=== PATIENT | female | born 1930 | race Caucasian/White ===

== ENCOUNTER 2016-07-18 20:14 | Inpatient (IN) | payer MEDICARE, BC ==
--- NOTE | 2016-07-18 20:25 | EDM.PDOC ---
ED HISTORY OF PRESENT ILLNESS - General Chief Complaint: Cardiovascular Problem Stated Complaint: HIGH BLOOD PRESSURE Time Seen by Provider: 07/18/16 20:23 - History of Present Illness INITIAL COMMENTS - FREE TEXT/NARRATIVE: 86-year-old female presents to the emergency room with dizziness and increased blood pressure. Patient is having elevated blood pressure and has had some dizziness the dizziness is been an ongoing problem since a fall back in May. It seems to be worse with change of position. Patient had elevated blood pressure recently she was indurated physician who on Thursday stopped her metoprolol and started her on Inderal also increased the dose of her Cozaar from 25 mg a day to 50 mg a day she takes the Inderal in the evenings and Cozaar in the mornings. She was seen here about a week ago had a head CT with and without contrast that was negative for acute changes. The headache seems to be a vague headache doesn't seem to favor one side or the other. - Related Data Allergies/ADRs: Allergies Allergy/AdvReac Type Severity Reaction Status Date / Time No Known Allergies Allergy Verified 07/18/16 20:27 Home Meds: Home Meds Acetaminophen [Tylenol Extra Strength] 1,000 mg PO BID 03/09/15 [History] Aspirin 81 mg PO ACLUNCH 03/09/15 [History] B2/Vit A,C & E/Lut/Zeaxanth/Mn [Icaps] 1 tab PO BID 03/09/15 [History] LORazepam 0.5 mg PO BEDTIME 03/09/15 [History] Levothyroxine 125 mcg PO DAILY 03/09/15 [History] Losartan [Cozaar] 50 mg PO DAILY 03/09/15 [History] Pantoprazole [Protonix] 40 mg PO DAILY 03/09/15 [History] Calcium Polycarbophil [Fiber Tabs] 1 tab PO ACLUNCH 11/19/15 [History] Ondansetron [Zofran] 4 mg PO ASDIRECTED PRN 11/19/15 [History] Sertraline [Zoloft] 50 mg PO BEDTIME 11/19/15 [History] Sucralfate [Carafate] 1 gm PO ASDIRECTED PRN 11/19/15 [History] Vitamin B Complex 1 cap PO ACLUNCH 11/19/15 [History] traMADol [Ultram] 100 mg PO BID 11/19/15 [History] Propranolol [Inderal] 80 mg PO BEDTIME 07/18/16 [History] Donepezil [Aricept] 5 mg PO BEDTIME 07/19/16 [History] Past Medical History 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 History: Reports: Urinary incontinence 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 Complicated by acute pancreatitis Other Female Surgeries/Procedures: bladder sling Musculoskeletal Surgical History: Reports: Knee replacement Other Musculoskeletal Surgeries/Procedures:: RTK Social & Family History - Tobacco Use Smoking Status *Q: Never Smoker Second Hand Smoke Exposure: No - Recreational Drug Use Recreational Drug Use: No ED ROS GENERAL - Review of Systems Review Of Systems: Unable To Obtain Constitutional: Reports: no symptoms, weakness, fatigue. Denies: fever, chills HEENT: Reports: No symptoms, Other (she has some dizziness). Denies: Ear pain, Rhinitis, Sinus problem Respiratory: Reports: no symptoms Cardiovascular: Reports: Blood pressure problem. Denies: Chest pain, Dyspnea on exertion, Edema Endocrine: Reports: no symptoms GI/Abdominal: Reports: Nausea. Denies: Abdominal pain, Constipation, Diarrhea : Reports: no symptoms Musculoskeletal: Reports: no symptoms Skin: Reports: no symptoms Neurological: Reports: dizziness, headache, other (she has some underlying dementia) Psychiatric: Denies: Agitation, Anxiety ED EXAM, GENERAL - Physical Exam Exam: See Below Exam Limited By: No limitations General Appearance: alert, no apparent distress Ears: normal external exam, normal canal, hearing grossly normal, normal TMs, other (she uses hearing aids) Throat/Mouth: Normal inspection, Normal lips, Normal gums, Normal oropharynx, Normal voice, No airway compromise Head: atraumatic, normocephalic Neck: normal inspection, supple, non-tender, full range of motion Respiratory/Chest: no respiratory distress, lungs clear, normal breath sounds Cardiovascular: regular rate, rhythm, no edema, no murmur GI/Abdominal: normal bowel sounds, soft, non tender Back Exam: normal inspection. No: CVA tenderness (L), CVA tenderness (R) Extremities: normal inspection, no pedal edema Neurological: alert, no motor/sensory deficits EKG INTERPRETATION EKG Date: 07/18/16 Rhythm: NSR Rate (beats/min): 55 [place]: LAD-left axis deviation P-wave: present QRS: normal ST-T: normal QT: normal Course - Vital Signs Last Recorded V/S: Last Vital Signs Temp 36.7 C 07/19/16 20:19 Pulse 88 07/19/16 21:51 Resp 16 07/19/16 20:19 BP 121/53 L 07/19/16 21:51 Pulse Ox 96 07/19/16 21:51 - Orders/Labs/Meds Orders: Medication Orders Acetaminophen (Tylenol) 650 mg PO Q4H PRN PRN Reason: Headache Aspirin (Halfprin) 81 mg PO ACLUNCH [facility] Donepezil HCl (Aricept) 5 mg PO BEDTIME [facility] Last Admin: 07/19/16 21:50 Dose: 5 mg Doxazosin Mesylate (Cardura) 2 mg PO BEDTIME [facility] Last Admin: 07/19/16 22:00 Dose: Hydralazine HCl (Apresoline) 20 mg IVPUSH Q8H PRN PRN Reason: Hypertension Last Admin: 07/19/16 16:04 Dose: 20 mg Hydrochlorothiazide (Hydrochlorothiazide) 25 mg PO DAILY [facility] Last Admin: 07/19/16 11:25 Dose: 25 mg Ceftriaxone Sodium 1 gm/ (Sodium Chloride) 100 mls @ 200 mls/hr IV Q24H [facility] Last Admin: 07/19/16 14:07 Dose: 200 mls/hr Promethazine HCl 25 mg/ Sodium (Chloride) 51 mls @ 100 mls/hr IV Q6H PRN PRN Reason: Nausea/Vomiting Last Admin: 07/19/16 19:40 Dose: 100 mls/hr Lactated Ringer's (Ringers, Lactated) 1,000 mls @ 50 mls/hr IV ASDIRECTED [facility] Last Admin: 07/19/16 19:39 Dose: 50 mls/hr Levothyroxine Sodium (Levothyroxine) 125 mcg PO ACBREAKFAST [facility] Last Admin: 07/20/16 05:55 Dose: 125 mcg Lorazepam (Ativan) 0.5 mg PO BEDTIME [facility] Last Admin: 07/19/16 21:51 Dose: 0.5 mg Losartan Potassium (Cozaar) 50 mg PO BIDPC [facility] Last Admin: 07/19/16 19:41 Dose: 50 mg Ondansetron HCl (Zofran) 4 mg IVPUSH Q8H PRN PRN Reason: Nausea/Vomiting Pantoprazole Sodium (Protonix) 40 mg PO DAILY@0700 [facility] Last Admin: 07/20/16 06:13 Dose: Not Given Admin: 07/20/16 05:55 Dose: 40 mg Propranolol HCl (Inderal La) 80 mg PO BEDTIME [facility] Last Admin: 07/19/16 22:00 Dose: Sertraline HCl (Zoloft) 50 mg PO BEDTIME [facility] Sucralfate (Carafate) 1 gm PO QID PRN PRN Reason: Indigestion Last Admin: 07/19/16 11:25 Dose: 1 gm Tramadol HCl (Ultram) 100 mg PO BID [facility] Last Admin: 07/19/16 21:52 Dose: 100 mg Admin: 07/19/16 17:09 Dose: 100 mg Labs: Laboratory Tests 07/18/16 07/18/16 07/18/16 Range/Units 21:28 21:28 23:02 WBC 5.00 (3.98-10.04) K/mm3 RBC 4.40 (3.98-5.22) M/mm3 Hgb 14.4 (11.2-15.7) gm/L Hct 42.2 (34.1-44.9) % MCV 95.9 H (79.4-94.8) fl MCH 32.7 H (25.6-32.2) pg MCHC 34.1 (32.2-35.5) g/dl RDW Std Deviation 40.0 (36.4-46.3) fL Plt Count 226 (182-369) K/mm3 MPV 8.6 L (9.4-12.3) fl Neutrophils % (Manual) 35 L (40-60) % Band Neutrophils % 0 (0-10) % Lymphocytes % (Manual) 55 H (20-40) % Atypical Lymphs % 0 % Monocytes % (Manual) 7 (2-10) % Eosinophils % (Manual) 3 (0.7-5.8) % Basophils % (Manual) 0 L (0.1-1.2) Platelet Estimate Adequate Plt Morphology Comment See note RBC Morph Comment Normal Sodium 140 (136-145) mEq/L Potassium 3.9 (3.5-5.1) mEq/L Chloride 101 (98-107) mEq/L Carbon Dioxide 30 (21-32) mEq/L Anion Gap 12.9 (5-15) BUN 13 (7-18) mg/dL Creatinine 0.7 (0.55-1.02) mg/dL Est Cr Clr Drug Dosing 45.95 mL/min Estimated GFR (MDRD) > 60 (>60) mL/min BUN/Creatinine Ratio 18.6 H (14-18) Glucose 117 H (83-115) mg/dL Calcium 9.1 (8.5-10.1) mg/dL Total Bilirubin 0.3 (0.2-1.0) mg/dL AST 13 L (15-37) U/L ALT 18 (14-59) U/L Alkaline Phosphatase 40 L (46-116) U/L Total Protein 7.1 (6.4-8.2) g/dl Albumin 3.9 (3.4-5.0) g/dl Globulin 3.2 gm/dL Albumin/Globulin Ratio 1.2 (1-2) Urine Color Light yellow (Yellow) Urine Appearance Clear (Clear) Urine pH 7.0 (5.0-8.0) Ur Specific Squire 1.020 (1.005-1.030) Urine Protein Negative (Negative) Urine Glucose (UA) Negative (Negative) Urine Ketones Negative (Negative) Urine Occult Blood Negative (Negative) Urine Nitrite Negative (Negative) Urine Bilirubin Negative (Negative) Urine Urobilinogen 0.2 (0.2-1.0) Ur Leukocyte Esterase 1+ H (Negative) Urine RBC 0-5 (0-5) /hpf Urine WBC 5-10 H (0-5) /hpf Ur Epithelial Cells 0-5 (0-5) /hpf Urine Bacteria Rare (FEW) /hpf Urine Mucus Not seen (FEW) /hpf Meds: Medications Generic Name Dose Route Start Last Admin Trade Name Freq PRN Reason Stop Dose Admin Acetaminophen 650 mg 07/19/16 16:38 Tylenol PO Q4H PRN Headache Aspirin 81 mg 07/20/16 10:00 Halfprin PO ACLUNCH [facility] Donepezil HCl 5 mg 07/19/16 21:00 07/19/16 21:50 Aricept PO 5 mg BEDTIME [facility] Administration Doxazosin Mesylate 2 mg 07/19/16 21:00 07/19/16 22:00 Cardura PO Not Given BEDTIME [facility] Hydralazine HCl 20 mg 07/19/16 02:38 07/19/16 16:04 Apresoline IVPUSH 20 mg Q8H PRN Administration Hypertension Hydrochlorothiazide 25 mg 07/19/16 09:00 07/19/16 11:25 Hydrochlorothiazide PO 25 mg DAILY [facility] Administration Ceftriaxone Sodium 1 gm/ 100 mls @ 200 mls/hr 07/19/16 14:00 07/19/16 14:07 Sodium Chloride IV 200 mls/hr Q24H [facility] Administration Promethazine HCl 25 mg/ Sodium 51 mls @ 100 mls/hr 07/19/16 18:24 07/19/16 19 :40 Chloride IV 100 mls/hr Q6H PRN Administration Nausea/Vomiting Lactated Ringer's 1,000 mls @ 50 mls/hr 07/19/16 19:30 07/19/16 19:39 Ringers, Lactated IV 50 mls/hr ASDIRECTED [facility] Administration Levothyroxine Sodium 125 mcg 07/20/16 06:00 07/20/16 05:55 Levothyroxine PO 125 mcg ACBREAKFAST [facility] Administration Lorazepam 0.5 mg 07/19/16 21:00 07/19/16 21:51 Ativan PO 0.5 mg BEDTIME [facility] Administration Losartan Potassium 50 mg 07/19/16 18:00 07/19/16 19:41 Cozaar PO 50 mg BIDPC [facility] Administration Ondansetron HCl 4 mg 07/19/16 18:23 Zofran IVPUSH Q8H PRN Nausea/Vomiting Pantoprazole Sodium 40 mg 07/20/16 07:00 07/20/16 06:13 Protonix PO Not Given DAILY@0700 [facility] Propranolol HCl 80 mg 07/19/16 21:00 07/19/16 22:00 Inderal La PO Not Given BEDTIME [facility] Sertraline HCl 50 mg 07/20/16 21:00 Zoloft PO BEDTIME [facility] Sucralfate 1 gm 07/19/16 10:35 07/19/16 11:25 Carafate PO 1 gm QID PRN Administration Indigestion Tramadol HCl 100 mg 07/19/16 17:00 07/19/16 21:52 Ultram PO 100 mg BID [facility] Administration Discontinued Medications Generic Name Dose Route Start Last Admin Trade Name Freq PRN Reason Stop Dose Admin Hydralazine HCl 5 mg 07/18/16 20:58 07/18/16 21:10 Apresoline PO 07/18/16 20:59 5 mg ONETIME ONE Administration Hydralazine HCl 5 mg 07/18/16 22:07 07/18/16 22:16 Apresoline IVPUSH 07/18/16 22:08 5 mg ONETIME ONE Administration Lactated Ringer's 1,000 mls @ 75 mls/hr 07/18/16 21:30 07/18/16 21:43 Ringers, Lactated IV 75 mls/hr ASDIRECTED [facility] Administration Meclizine HCl 12.5 mg 07/18/16 20:58 07/18/16 21:10 Antivert PO 07/18/16 20:59 12.5 mg ONETIME ONE Administration Meclizine HCl 12.5 mg 07/18/16 23:48 07/18/16 23:55 Antivert PO 07/18/16 23:49 12.5 mg ONETIME ONE Administration Meclizine HCl 12.5 mg 07/18/16 23:55 07/19/16 00:01 Antivert PO 07/18/16 23:56 Not Given ONETIME ONE Ondansetron HCl 4 mg 07/18/16 21:17 07/18/16 21:42 Zofran IVPUSH 07/18/16 21:18 4 mg ONETIME ONE Administration Ondansetron HCl 4 mg 07/19/16 00:47 07/19/16 03:54 Zofran IVPUSH 07/19/16 00:48 Not Given ONETIME ONE Ondansetron HCl Confirm 07/19/16 18:19 07/19/16 18:22 Zofran Administered 07/19/16 18:20 4 mg Dose Administration 4 mg .ROUTE .STK-MED ONE Terazosin HCl 2 mg 07/19/16 02:40 07/19/16 03:52 Hytrin PO 07/19/16 02:41 Not Given BEDTIME ONE - Re-Assessments/Exams Free Text/Narrative Re-Assessment/Exam: 07/18/16 21:42 labs and x-rays ordered she recently had a CT she hasn't had any recent falls we 'll not recheck it just yet. Gave her 5 mg of hydralazine as her blood pressure was running 170-200 systolic and 12.5 mg of meclizine unfortunately she vomited these up we don't know how much stayed down I will give her 4 mg of Zofran and watch her at this point. 07/18/16 23:53 patient is doing better at this time she still having some intermittent dizziness but she is ambulatory with some dizziness generally feels better she was given 5 mg of hydralazine IV and her pressures have stabilized. In the 160s to 170s. Her labs look pretty good except she may have an early developing UTI cultures been set up on this. We will try and give her some meclizine. Departure - Departure Time of Disposition: 01:14 Disposition: Admitted As Inpatient 64 Clinical Impression: Hypertensive urgency
[2016-07-18] MEDS ORDERED: hydrALAZINE 10 MG Tab PO ONE (20:58)
[2016-07-18] MEDS ORDERED: Meclizine 12.5 MG Tab PO ONE ×3 (20:58→23:55)
[2016-07-18] MEDS ORDERED: Ondansetron 4 MG/2 ML SDV IVPUSH ONE (21:17)
[2016-07-18] MEDS ORDERED: Lactated Ringers 1,000 ML IV SCH (21:30)
[2016-07-18] MEDS ORDERED: hydrALAZINE 20 MG/ML SDV IVPUSH ONE (22:07)
[2016-07-19] MEDS ORDERED: Ondansetron 4 MG/2 ML SDV IVPUSH ONE (00:47)
[2016-07-19] MEDS ORDERED: hydrALAZINE 20 MG/ML SDV IVPUSH PRN (02:38)
[2016-07-19] MEDS ORDERED: Sucralfate 1 GM Tab PO PRN (10:35)
[2016-07-19] MEDS: Hydrochlorothiazide 25 MG Tab PO SCH (11:25)
--- NOTE | 2016-07-19 13:35 | PCM.HP ---
H&P History of Present Illness - General Date of Service: 07/19/16 Source of Information: Patient, Family, Provider History Limitations: Reports: No limitations - History of Present Illness Initial Comments - Free Text/Narative: 86 year old female with complaint of dizziness has also had profoundly labile blood pressure. On presentation, the SBP was greater than 190. The patient could not be controlled on Apresoline. However a very small dose of 10 mg IV was given. She has had chronic headaches, as well as a change of vision and an unstable gait. Recent medication changes have been made including starting Inderal for headaches as well as increasing Cozaar 25-->50 mg daily. AMS was noted on the ED evaluation, a UTI has been documented. A posterior circulation evaluation will be pursued to shed light on the gait instability and reportedly vertigo; central vertigo has not been excluded. Onset of Symptoms: Reports: unknown/unsure Duration of Symptoms: Reports: Week(s):, Getting worse, Recurring Location: Reports: head Quality: Reports: Same as previous episode Improves with: Reports: None Worsens with: Reports: None Associated Symptoms: Reports: confusion, headaches, weakness Headache Pain Score (Numeric/FACES): 7 - Related Data Allergies/Adverse Reactions: Allergies Allergy/AdvReac Type Severity Reaction Status Date / Time No Known Allergies Allergy Verified 07/18/16 20:27 Home Medications: Home Meds Acetaminophen [Tylenol Extra Strength] 1,000 mg PO BID 03/09/15 [History] Aspirin 81 mg PO ACLUNCH 03/09/15 [History] B2/Vit A,C & E/Lut/Zeaxanth/Mn [Icaps] 1 tab PO BID 03/09/15 [History] LORazepam 0.5 mg PO BEDTIME 03/09/15 [History] Levothyroxine 125 mcg PO DAILY 03/09/15 [History] Losartan [Cozaar] 50 mg PO DAILY 03/09/15 [History] Pantoprazole [Protonix] 40 mg PO DAILY 03/09/15 [History] Calcium Polycarbophil [Fiber Tabs] 1 tab PO ACLUNCH 11/19/15 [History] Ondansetron [Zofran] 4 mg PO ASDIRECTED PRN 11/19/15 [History] Sertraline [Zoloft] 50 mg PO BEDTIME 11/19/15 [History] Sucralfate [Carafate] 1 gm PO ASDIRECTED PRN 11/19/15 [History] Vitamin B Complex 1 cap PO ACLUNCH 11/19/15 [History] traMADol [Ultram] 100 mg PO BID 11/19/15 [History] Propranolol [Inderal] 80 mg PO BEDTIME 07/18/16 [History] Donepezil [Aricept] 5 mg PO BEDTIME 07/19/16 [History] Past Medical History HEENT History: Reports: Hard of hearing, Other (see below) Other HEENT History: daughter states she will bring the hearing aids in in the morning. pt wears glasses and has dentures. 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: Musculoskeletal History: Reports: Other (see below) Other Musculoskeletal History: fractures vertebrae, hx of right knee replacement has pain in it still so wears a brace to help with the pain, left knee is bone on bone so also hurts with ambulation Neurological History: Reports: Headaches, chronic Endocrine/Metabolic History: Reports: Hypothyroidism Dermatologic History: Reports: None - Infectious Disease History Infectious Disease History: Reports: Chicken pox - Past Surgical History Other HEENT Surgeries/Procedures: nose surgery Cardiovascular Surgical History: Reports: None Other GI Surgeries/Procedures: 82% stomach removal 40 years ago d/t perfurated ulcer. Complicated by acute pancreatitis Female Surgical History: Reports: Other (see below) Other Female Surgeries/Procedures: bladder sling Endocrine Surgical History: Reports: None Neurological Surgical History: Reports: None Musculoskeletal Surgical History: Reports: Knee replacement Other Musculoskeletal Surgeries/Procedures:: RTK Dermatological Surgical History: Reports: None Social & Family History - Family History Family Medical History: Noncontributory - Tobacco Use Smoking Status *Q: Never Smoker Second Hand Smoke Exposure: No - Caffeine Use Caffeine Use: Reports: Other Other Caffeine Use: occassional coffee - Recreational Drug Use Recreational Drug Use: No H&P Review of Systems - Review of Systems: Review Of Systems: See Below General: Reports: malaise, weakness, decreased appetite HEENT: Reports: headaches Pulmonary: Reports: no symptoms Cardiovascular: Reports: no symptoms Gastrointestinal: Reports: Abdominal pain Genitourinary: Reports: no symptoms Musculoskeletal: Reports: no symptoms Skin: Reports: no symptoms Psychiatric: Reports: confusion Neurological: Reports: dizziness Hematologic/Lymphatic: Reports: no symptoms Immunologic: Reports: no symptoms Exam - Exam Exam: See Below - Vital Signs Vital Signs: Last Vital Signs Temp 36.9 C 07/19/16 12:45 Pulse 65 07/19/16 12:45 Resp 20 07/19/16 12:45 BP 127/78 07/19/16 11:25 Pulse Ox 92 L 07/19/16 12:45 Weight: 65.635 kg - Exam Quality Assessment: supplemental oxygen, DVT prophylaxis General: alert, oriented, cooperative HEENT: EACs clear, EOMI, Nares patent, Normal nasal septum, Pupils equal, Pupils reactive Neck: supple, trachea midline Lungs: Normal respiratory effort Cardiovascular: regular rate, regular rhythm Abdomen: normal bowel sounds, soft (Female) Exam: Deferred Rectal (Female) Exam: Deferred Back Exam: normal inspection Extremities: normal pulses Skin: warm Neurological: cranial nerves intact Neuro Extensive - Mental Status: alert, normal mood/affect, normal cognition, memory intact Neuro Extensive - Motor, Sensory, Reflexes: CN II-XII intact, normal gait Psychiatric: alert, normal affect, normal mood - Patient Data Result Diagrams: 07/20/16 05:55 07/20/16 05:55 *Q Meaningful Use (ADM) - VTE *Q VTE Criteria *Q: - Stroke *Q Stroke Criteria *Q: - AMI *Q AMI Criteria *Q: - Problem List (1) High blood pressure SNOMED Code(s): 88764314 ICD Code: I10 - ESSENTIAL (PRIMARY) HYPERTENSION Status: Acute Current Visit: No (2) Syncope SNOMED Code(s): 411022811 ICD Code: R55 - SYNCOPE AND COLLAPSE Status: Acute Current Visit: No Qualifiers: Qualified Code(s): R55 - Syncope and collapse Problem List Initiated/Reviewed/Updated: No Orders Last 24hrs: Active Orders 24 hr Category Date Time Status Activity as Tolerated [RC] .Routine Care 07/19/16 03:45 Active Bedrest Bathroom Privileges [RC] ASDIRECTED Care 07/19/16 10:19 Active Neuro Check [RC] BID Care 07/19/16 12:19 Active Vital Signs [RC] PER UNIT ROUTINE Care 07/19/16 10:19 Active Consult to Occupational Therapy [OT Evaluation and Cons 07/19/16 10:44 Active Treatment] [CONS] Routine PT Evaluation and Treatment [CONS] Routine Cons 07/19/16 10:44 Active Clear Liquid Diet [DIET] Diet 07/19/16 Breakfast Active Brain w Cont [MR] Routine Exams 07/21/16 09:00 Ordered MRA Neck Without Contrast [Ang Neck wo Cont] [MR] Exams 07/21/16 09:00 Ordered Routine RENA W/RFX TESTING [REF] Routine Lab 07/20/16 05:00 Ordered BASIC METABOLIC PANEL,BMP [CHEM] DAILY Lab 07/20/16 05:00 Ordered BASIC METABOLIC PANEL,BMP [CHEM] DAILY Lab 07/21/16 05:00 Ordered BASIC METABOLIC PANEL,BMP [CHEM] DAILY Lab 07/22/16 05:00 Ordered CBC WITH AUTO DIFF [HEME] DAILY Lab 07/20/16 05:00 Ordered CBC WITH AUTO DIFF [HEME] DAILY Lab 07/21/16 05:00 Ordered CBC WITH AUTO DIFF [HEME] DAILY Lab 07/22/16 05:00 Ordered CRP [C-REACTIVE PROTEIN] [CHEM] Routine Lab 07/20/16 05:00 Ordered FOLIC ACID [CHEM] Routine Lab 07/20/16 05:00 Ordered INFLUENZA A+B AG SCREEN [RM] Routine Lab 07/19/16 13:24 Uncollected LIPID PANEL [CHEM] Routine Lab 07/20/16 05:00 Ordered MYCOPLASMA PNEUMONIAE IGM AB [CHEM] Routine Lab 07/20/16 05:00 Ordered SEDIMENTATION RATE AUTO [HEME] Routine Lab 07/20/16 05:00 Ordered TSH [CHEM] Routine Lab 07/20/16 05:00 Ordered VITAMIN B12 [CHEM] Routine Lab 07/20/16 05:00 Ordered Aspirin [Halfprin] Med 07/20/16 10:00 Active 81 mg PO ACLUNCH Donepezil [Aricept] Med 07/19/16 21:00 Active 5 mg PO BEDTIME Hydrochlorothiazide Med 07/19/16 09:00 Active 25 mg PO DAILY LORazepam [Ativan] Med 07/19/16 21:00 Active 0.5 mg PO BEDTIME Levothyroxine Med 07/20/16 06:00 Active 125 mcg PO ACBREAKFAST Losartan [Cozaar] Med 07/19/16 18:00 Active 50 mg PO BIDPC Pantoprazole [Protonix] Med 07/20/16 07:00 Active 40 mg PO DAILY@0700 Propranolol [Inderal LA] Med 07/19/16 21:00 Active 80 mg PO BEDTIME Sertraline [Zoloft] Med 07/20/16 21:00 Active 50 mg PO BEDTIME Sucralfate [Carafate] Med 07/19/16 10:35 Active 1 gm PO QID PRN cefTRIAXone [Rocephin] 1 gm Med 07/19/16 13:30 Ordered Sodium Chloride 0.9% [Normal Saline] 100 ml IV Q24H hydrALAZINE [Apresoline] Med 07/19/16 02:38 Active 20 mg IVPUSH Q8H PRN Aspiration Precautions [OM.PC] Routine Oth 07/19/16 12:18 Ordered Code Status [Resuscitation Status] Routine Resus Stat 07/19/16 03:46 Ordered Medication Orders Aspirin (Halfprin) 81 mg PO ACLUNCH [facility] Donepezil HCl (Aricept) 5 mg PO BEDTIME [facility] Hydralazine HCl (Apresoline) 20 mg IVPUSH Q8H PRN PRN Reason: Hypertension Hydrochlorothiazide (Hydrochlorothiazide) 25 mg PO DAILY [facility] Last Admin: 07/19/16 11:25 Dose: 25 mg Lactated Ringer's (Ringers, Lactated) 1,000 mls @ 75 mls/hr IV ASDIRECTED [facility] Last Admin: 07/18/16 21:43 Dose: 75 mls/hr Ceftriaxone Sodium 1 gm/ (Sodium Chloride) 100 mls @ 200 mls/hr IV Q24H [facility] Levothyroxine Sodium (Levothyroxine) 125 mcg PO ACBREAKFAST [facility] Lorazepam (Ativan) 0.5 mg PO BEDTIME [facility] Losartan Potassium (Cozaar) 50 mg PO BIDPC [facility] Pantoprazole Sodium (Protonix) 40 mg PO DAILY@0700 [facility] Propranolol HCl (Inderal La) 80 mg PO BEDTIME [facility] Sertraline HCl (Zoloft) 50 mg PO BEDTIME [facility] Sucralfate (Carafate) 1 gm PO QID PRN PRN Reason: Indigestion Last Admin: 07/19/16 11:25 Dose: 1 gm Assessment/Plan Comment:: Impression: Mild AMS with recent exacerbation of dizziness Presumptive treatment of vertigo as an outpatient. UTI Migraine headaches with recent Inderal Systolic hypertension, uncontrolled Chronic Hypothyroid Plan: Rocephin Hydration, stop at 1800 hour Home meds Hold Antivert Consult PT/OT/SW CVA posterior circ work up. CVA protocol with lab assessment May require SNF at [place] for rehab.
[2016-07-19] MEDS: cefTRIAXone 1 GM in Sodium Chloride 0.9% 100 ML IV SCH (14:07)
[2016-07-19] MEDS ORDERED: Acetaminophen 325 MG Tab PO PRN (16:38)
[2016-07-19] MEDS: traMADol 50 MG Tab PO SCH ×2 (17:09→21:52)
[2016-07-19] MEDS ORDERED: Ondansetron 4 MG/2 ML SDV ONE (18:19)
[2016-07-19] MEDS ORDERED: Ondansetron 4 MG/2 ML SDV IVPUSH PRN (18:23)
[2016-07-19] MEDS ORDERED: Promethazine 25 MG in Sodium Chloride 0.9% 50 ML IV PRN (18:24)
[2016-07-19] MEDS: Lactated Ringers 1,000 ML IV SCH (19:39)
[2016-07-19] MEDS: Losartan 25 MG Tab PO SCH (19:41)
[2016-07-19] MEDS: Donepezil 10 MG Tab PO SCH (21:50)
[2016-07-19] MEDS: Propranolol 80 MG Cap.ER PO SCH ×2 (21:50→22:00)
[2016-07-19] MEDS: Doxazosin 2 MG Tab PO SCH ×2 (21:50→22:00)
[2016-07-19] MEDS: LORazepam 0.5 MG Tab PO SCH (21:51)
[2016-07-20] MEDS: Pantoprazole 40 MG Tab.CR PO SCH ×2 (05:55→06:13)
[2016-07-20] MEDS: Levothyroxine 125 MCG Tab PO SCH (05:55)
[2016-07-20] MEDS ORDERED: Magnesium Hydroxide 400 MG/5 ML Susp 30 ML Cup PO PRN (07:50)
[2016-07-20] MEDS: traMADol 50 MG Tab PO SCH ×2 (09:05→20:59)
[2016-07-20] MEDS: Aspirin 81 MG Tab.EC PO SCH (09:05)
[2016-07-20] MEDS: Losartan 25 MG Tab PO SCH ×2 (09:05→17:49)
[2016-07-20] MEDS: Hydrochlorothiazide 25 MG Tab PO SCH (09:05)
[2016-07-20] MEDS: cefTRIAXone 1 GM in Sodium Chloride 0.9% 100 ML IV SCH (13:42)
[2016-07-20] MEDS: Lactated Ringers 1,000 ML IV SCH (16:26)
--- NOTE | 2016-07-20 19:45 | PCM.PN ---
- General Info Date of Service: 07/20/16 Functional Status: Reports: tolerating diet, ambulating, urinating - Review of Systems General: Reports: weakness HEENT: Reports: no symptoms Pulmonary: Reports: no symptoms Cardiovascular: Reports: no symptoms Gastrointestinal: Reports: No symptoms Genitourinary: Reports: no symptoms Musculoskeletal: Reports: no symptoms Skin: Reports: no symptoms Neurological: Reports: no symptoms Psychiatric: Reports: no symptoms - Patient Data Vitals - most recent: Last Vital Signs Temp 37.3 C 07/20/16 08:45 Pulse 85 07/20/16 08:45 Resp 16 07/20/16 08:45 BP 137/71 07/20/16 17:49 Pulse Ox 94 L 07/20/16 08:45 Weight - most recent: 65.635 kg I&O - last 24 hours: Intake & Output 07/20/16 07/20/16 07/20/16 06:59 14:59 22:59 Intake Total 291 15 4900 Output Total 650 500 Balance 153 60 600 Lab Results last 24 hrs: Laboratory Results - last 24 hr 07/20/16 07/20/16 07/20/16 Range/Units 05:55 05:55 05:55 WBC 7.60 (3.98-10.04) K/mm3 RBC 4.65 (3.98-5.22) M/mm3 Hgb 15.1 (11.2-15.7) gm/L Hct 45.0 H (34.1-44.9) % MCV 96.8 H (79.4-94.8) fl MCH 32.5 H (25.6-32.2) pg MCHC 33.6 (32.2-35.5) g/dl RDW Std Deviation 41.8 (36.4-46.3) fL Plt Count 276 (182-369) K/mm3 MPV 9.6 (9.4-12.3) fl Neut % (Auto) 49.5 (34.0-71.1) % Lymph % (Auto) 39.5 (19.3-51.7) % [place] % (Auto) 10.3 (4.7-12.5) % Eos % (Auto) 0.4 L (0.7-5.8) Baso % (Auto) 0.3 (0.1-1.2) % Neut # 3.77 (1.56-6.13) K/mm3 Lymph # 3.00 (1.18-3.74) K/mm3 [place] # 0.78 H (0.24-0.36) K/mm3 Eos # 0.03 L (0.04-0.36) K/mm3 Baso # 0.02 (0.01-0.08) K/mm3 ESR 11 (0-20) mm/hr Sodium 135 L (136-145) mEq/L Potassium 3.0 L (3.5-5.1) mEq/L Chloride 96 L (98-107) mEq/L Carbon Dioxide 31 (21-32) mEq/L Anion Gap 11.0 (5-15) BUN 12 (7-18) mg/dL Creatinine 0.9 (0.55-1.02) mg/dL Est Cr Clr Drug Dosing 35.74 mL/min Estimated GFR (MDRD) 59 (>60) mL/min BUN/Creatinine Ratio 13.3 L (14-18) Glucose 101 (83-115) mg/dL Calcium 8.9 (8.5-10.1) mg/dL C-Reactive Protein < 0.2 (<1.0) mg/dL Triglycerides 140 (<150) mg/dL Cholesterol 217 H (<200) mg/dL LDL Cholesterol Direct 140 H* (<100) mg/dL HDL Cholesterol 60.0 H (40-59) mg/dL Vitamin B12 (193-986) pg/ml Folate (8.6-58.9) ng/mL TSH 3rd Generation 1.716 (0.358-3.74) uIU/mL Mycoplasma pneumon IgM Negative (NEGATIVE) 07/20/16 Range/Units 05:55 WBC (3.98-10.04) K/mm3 RBC (3.98-5.22) M/mm3 Hgb (11.2-15.7) gm/L Hct (34.1-44.9) % MCV (79.4-94.8) fl MCH (25.6-32.2) pg MCHC (32.2-35.5) g/dl RDW Std Deviation (36.4-46.3) fL Plt Count (182-369) K/mm3 MPV (9.4-12.3) fl Neut % (Auto) (34.0-71.1) % Lymph % (Auto) (19.3-51.7) % [place] % (Auto) (4.7-12.5) % Eos % (Auto) (0.7-5.8) Baso % (Auto) (0.1-1.2) % Neut # (1.56-6.13) K/mm3 Lymph # (1.18-3.74) K/mm3 [place] # (0.24-0.36) K/mm3 Eos # (0.04-0.36) K/mm3 Baso # (0.01-0.08) K/mm3 ESR (0-20) mm/hr Sodium (136-145) mEq/L Potassium (3.5-5.1) mEq/L Chloride (98-107) mEq/L Carbon Dioxide (21-32) mEq/L Anion Gap (5-15) BUN (7-18) mg/dL Creatinine (0.55-1.02) mg/dL Est Cr Clr Drug Dosing mL/min Estimated GFR (MDRD) (>60) mL/min BUN/Creatinine Ratio (14-18) Glucose (83-115) mg/dL Calcium (8.5-10.1) mg/dL C-Reactive Protein (<1.0) mg/dL Triglycerides (<150) mg/dL Cholesterol (<200) mg/dL LDL Cholesterol Direct (<100) mg/dL HDL Cholesterol (40-59) mg/dL Vitamin B12 557 (193-986) pg/ml Folate 43.4 (8.6-58.9) ng/mL TSH 3rd Generation (0.358-3.74) uIU/mL Mycoplasma pneumon IgM (NEGATIVE) Mark Results last 24 hrs: Microbiology 07/19/16 15:03 Influenza Type A Antigen Screen - Final Nasopharyngeal Swab - Nare, Right NEGATIVE INFLUENZA A VIRUS AG Influenza Type B Antigen Screen - Final NEGATIVE INFLUENZA B VIRUS AG Med Orders - Current: Current Medications Acetaminophen (Tylenol) 650 mg PO Q4H PRN PRN Reason: Headache Aspirin (Halfprin) 81 mg PO ACLUNCH [facility] Last Admin: 07/20/16 09:05 Dose: 81 mg Donepezil HCl (Aricept) 5 mg PO BEDTIME [facility] Last Admin: 07/19/16 21:50 Dose: 5 mg Doxazosin Mesylate (Cardura) 2 mg PO BEDTIME [facility] Last Admin: 07/19/16 22:00 Dose: Not Given Enoxaparin Sodium (Lovenox) 40 mg SUBCUT DAILY [facility] Hydralazine HCl (Apresoline) 20 mg IVPUSH Q8H PRN PRN Reason: Hypertension Last Admin: 07/19/16 16:04 Dose: 20 mg Hydrochlorothiazide (Hydrochlorothiazide) 25 mg PO DAILY [facility] Last Admin: 07/20/16 09:05 Dose: 25 mg Ceftriaxone Sodium 1 gm/ (Sodium Chloride) 100 mls @ 200 mls/hr IV Q24H [facility] Last Admin: 07/20/16 13:42 Dose: 200 mls/hr Promethazine HCl 25 mg/ Sodium (Chloride) 51 mls @ 100 mls/hr IV Q6H PRN PRN Reason: Nausea/Vomiting Last Admin: 07/19/16 19:40 Dose: 100 mls/hr Lactated Ringer's (Ringers, Lactated) 1,000 mls @ 50 mls/hr IV ASDIRECTED [facility] Last Admin: 07/20/16 16:26 Dose: 50 mls/hr Levothyroxine Sodium (Levothyroxine) 125 mcg PO ACBREAKFAST [facility] Last Admin: 07/20/16 05:55 Dose: 125 mcg Lorazepam (Ativan) 0.5 mg PO BEDTIME [facility] Last Admin: 07/19/16 21:51 Dose: 0.5 mg Losartan Potassium (Cozaar) 50 mg PO BIDPC [facility] Last Admin: 07/20/16 17:49 Dose: 50 mg Magnesium Hydroxide (Milk Of Magnesia) 30 ml PO DAILY PRN PRN Reason: Constipation Last Admin: 07/20/16 09:05 Dose: 30 ml Ondansetron HCl (Zofran) 4 mg IVPUSH Q8H PRN PRN Reason: Nausea/Vomiting Pantoprazole Sodium (Protonix) 40 mg PO DAILY@0700 [facility] Last Admin: 07/20/16 06:13 Dose: Not Given Potassium Chloride (Potassium Chloride Solution) 40 meq PO BID [facility] Stop: 07/22/16 09:01 Propranolol HCl (Inderal La) 80 mg PO BEDTIME [facility] Last Admin: 07/19/16 22:00 Dose: Not Given Sertraline HCl (Zoloft) 50 mg PO BEDTIME [facility] Sucralfate (Carafate) 1 gm PO QID PRN PRN Reason: Indigestion Last Admin: 07/19/16 11:25 Dose: 1 gm Tramadol HCl (Ultram) 100 mg PO BID [facility] Last Admin: 07/20/16 09:05 Dose: 100 mg Discontinued Medications Hydralazine HCl (Apresoline) 5 mg PO ONETIME ONE Stop: 07/18/16 20:59 Last Admin: 07/18/16 21:10 Dose: 5 mg Hydralazine HCl (Apresoline) 5 mg IVPUSH ONETIME ONE Stop: 07/18/16 22:08 Last Admin: 07/18/16 22:16 Dose: 5 mg Lactated Ringer's (Ringers, Lactated) 1,000 mls @ 75 mls/hr IV ASDIRECTED [facility] Last Admin: 07/18/16 21:43 Dose: 75 mls/hr Meclizine HCl (Antivert) 12.5 mg PO ONETIME ONE Stop: 07/18/16 20:59 Last Admin: 07/18/16 21:10 Dose: 12.5 mg Meclizine HCl (Antivert) 12.5 mg PO ONETIME ONE Stop: 07/18/16 23:49 Last Admin: 07/18/16 23:55 Dose: 12.5 mg Meclizine HCl (Antivert) 12.5 mg PO ONETIME ONE Stop: 07/18/16 23:56 Last Admin: 07/19/16 00:01 Dose: Not Given Ondansetron HCl (Zofran) 4 mg IVPUSH ONETIME ONE Stop: 07/18/16 21:18 Last Admin: 07/18/16 21:42 Dose: 4 mg Ondansetron HCl (Zofran) 4 mg IVPUSH ONETIME ONE Stop: 07/19/16 00:48 Last Admin: 07/19/16 03:54 Dose: Not Given Ondansetron HCl (Zofran) Confirm Administered Dose 4 mg .ROUTE .STK-MED ONE Stop: 07/19/16 18:20 Last Admin: 07/19/16 18:22 Dose: 4 mg Terazosin HCl (Hytrin) 2 mg PO BEDTIME ONE Stop: 07/19/16 02:41 Last Admin: 07/19/16 03:52 Dose: Not Given - Exam Quality Assessment: DVT prophylaxis General: alert, oriented, cooperative, no acute distress HEENT: Pupils equal, Pupils reactive, EOMI Neck: supple, trachea midline, no JVD Lungs: Normal respiratory effort Cardiovascular: regular rate, regular rhythm Abdomen: bowel sounds present, soft, no tenderness, no distension (Female) Exam: Deferred Back Exam: normal inspection, full range of motion Extremities: normal pulses Skin: warm Neurological: no new focal deficit, normal speech Psy/Mental Status: alert, normal affect, normal mood - Problem List & Annotations (1) High blood pressure SNOMED Code(s): 11048056 Code(s): I10 - ESSENTIAL (PRIMARY) HYPERTENSION Status: Acute (2) Syncope SNOMED Code(s): 770938299 Code(s): R55 - SYNCOPE AND COLLAPSE Status: Acute Qualifiers: Qualified Code(s): R55 - Syncope and collapse - Problem List Review Problem List Initiated/Reviewed/Updated: Yes - My Orders Last 24 Hours: My Active Orders 07/19/16 19:30 Lactated Ringers [Ringers, Lactated] 1,000 ml IV ASDIRECTED 07/19/16 21:00 Donepezil [Aricept] 5 mg PO BEDTIME Doxazosin [Cardura] 2 mg PO BEDTIME LORazepam [Ativan] 0.5 mg PO BEDTIME Propranolol [Inderal LA] 80 mg PO BEDTIME 07/20/16 05:55 RENA W/RFX TESTING [REF] Routine 07/20/16 06:00 Levothyroxine 125 mcg PO ACBREAKFAST 07/20/16 07:00 Pantoprazole [Protonix] 40 mg PO DAILY@0700 07/20/16 07:50 Magnesium Hydroxide [Milk of Magnesia] 30 ml PO DAILY PRN 07/20/16 10:00 Aspirin [Halfprin] 81 mg PO ACLUNCH 07/20/16 21:00 Potassium Chloride [Potassium Chloride Solution] 40 meq PO BID Sertraline [Zoloft] 50 mg PO BEDTIME 07/20/16 Breakfast Regular Diet [DIET] 07/21/16 05:00 BASIC METABOLIC PANEL,BMP [CHEM] DAILY CBC WITH AUTO DIFF [HEME] DAILY 07/21/16 09:00 Brain w Cont [MR] Routine MRA Neck Without Contrast [Ang Neck wo Cont] [MR] Routine Enoxaparin [Lovenox] 40 mg SUBCUT DAILY 07/21/16 11:00 Consult to Buggy Man [CONS] Routine 07/21/16 13:00 Echo Comp wo Cont [US] Routine 07/22/16 05:00 BASIC METABOLIC PANEL,BMP [CHEM] DAILY CBC WITH AUTO DIFF [HEME] DAILY - Plan Plan:: Impression: Mild AMS with recent exacerbation of dizziness Presumptive treatment of vertigo as an outpatient. UTI Migraine headaches with recent Inderal Systolic hypertension, uncontrolled Chronic Hypothyroid Plan: Continue alpha christiano, Cardura 2 mg daily. Follow BP, labile; may need drug holiday. Rocephin Hydration, stop at 1800 hour Home meds Hold Antivert Consult PT/OT/SW CVA posterior circ work up. CVA protocol with lab assessment May require SNF at [place] for rehab.
[2016-07-20] MEDS: Sertraline 50 MG Tab PO SCH (20:58)
[2016-07-20] MEDS: Donepezil 10 MG Tab PO SCH (20:58)
[2016-07-20] MEDS: Doxazosin 2 MG Tab PO SCH (20:59)
[2016-07-20] MEDS: LORazepam 0.5 MG Tab PO SCH (20:59)
[2016-07-20] MEDS: Potassium Chloride 10% 20 MEQ/15 ML Soln 15 ML UD Cup PO SCH (21:00)
[2016-07-20] MEDS: Propranolol 80 MG Cap.ER PO SCH (21:00)
[2016-07-21] MEDS: Levothyroxine 125 MCG Tab PO SCH (06:26)
[2016-07-21] MEDS: Pantoprazole 40 MG Tab.CR PO SCH (06:26)
--- NOTE | 2016-07-21 08:01 | CT ---
Head CT Technique: Multiple axial sections through the brain were obtained. Intravenous contrast was not utilized. Comparison: Previous head CT study of 07/10/16. Findings: Ventricles along with basal cisterns and sulci over the convexities are mildly prominent for the patient's age. Diminished density noted within the periventricular and subcortical white matter as well as within the basal ganglia on both sides. 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 No other abnormal parenchymal densities are seen. No evidence of intracranial hemorrhage. No midline shift or mass effect is seen. Slight vascular calcification seen within the carotid siphon. No discrete calvarial abnormality is seen. Visualized paranasal sinuses are clear. Mastoid and middle ear cavities are clear. Impression: 1. Senescent change as described above. 2. No acute intracranial abnormality is identified. No significant change seen from prior head CT exam. Diagnostic code #2 I agree with preliminary report issued by [employer] (preliminary report dictated on 07/18/16, 11:59 PM Central Time)
[2016-07-21] MEDS ORDERED: Gadobenate Dimeglumine 529 MG/ML 20 ML SDV IVPUSH ONE ×2 (08:11→12:56)
[2016-07-21] MEDS ORDERED: Sodium Chloride 0.9% 10 ML Syringe FLUSH PRN ×2 (08:11→12:56)
[2016-07-21] MEDS: traMADol 50 MG Tab PO SCH ×2 (09:47→21:01)
[2016-07-21] MEDS: Losartan 25 MG Tab PO SCH ×2 (09:47→17:39)
[2016-07-21] MEDS: Enoxaparin 40 MG/0.4 ML Syringe SUBCUT SCH (09:48)
[2016-07-21] MEDS: Potassium Chloride 10% 20 MEQ/15 ML Soln 15 ML UD Cup PO SCH ×2 (09:48→21:03)
[2016-07-21] MEDS: Aspirin 81 MG Tab.EC PO SCH (09:48)
[2016-07-21] MEDS: Hydrochlorothiazide 25 MG Tab PO SCH (09:48)
--- NOTE | 2016-07-21 09:59 | MR ---
MRI brain (with and without contrast) Technique: T1 sagittal; T2, T2 FLAIR, diffusion and T1 axial; T1 FLAIR coronal; post-gadolinium T1 axial and post-gadolinium T1 and FLAIR coronal images of the brain were obtained. Comparison: Previous head CT exam of 07/18/16. Findings: Ventricles along with basal cisterns and sulci over the convexities are mildly prominent. Diffuse increased signal is seen within the susi, basal ganglia, subcortical white matter and periventricular white matter compatible with small vessel ischemic demyelination change. No abnormal areas of diffusion are seen to indicate an acute infarct. No midline shift or mass effect is seen. Normal signal void is seen within the major cerebral arteries within the skull base. No abnormal areas of enhancement are seen. Impression: 1. Senescent change as described above. No acute diffusion abnormalities are seen. Diagnostic code #2
--- NOTE | 2016-07-21 14:42 | MR ---
MRA angiogram of neck Technique: MR angiogram study was performed after intravenous gadolinium administration. Multiple MIP images were obtained. Findings: Significant venous contamination is seen which limits details. Interpretation primarily based on the [id number] images. Carotid bulb shows no significant stenosis. Internal carotid artery and visualized common carotid arteries on both sides show no significant stenosis. Majority of the vertebral arteries that are seen appear without stenosis. Impression: 1. Gadolinium enhanced images are suboptimal due to venous contamination. 2. Interpretation primarily based on the [id number] noncontrast study which shows no significant stenosis. Diagnostic code #2
[2016-07-21] MEDS: cefTRIAXone 1 GM in Sodium Chloride 0.9% 100 ML IV SCH (17:40)
--- NOTE | 2016-07-21 20:09 | PCM.PN ---
- General Info Date of Service: 07/21/16 Functional Status: Reports: tolerating diet - Review of Systems General: Reports: no symptoms HEENT: Reports: no symptoms Pulmonary: Reports: no symptoms Cardiovascular: Reports: no symptoms Gastrointestinal: Reports: No symptoms Genitourinary: Reports: no symptoms Musculoskeletal: Reports: no symptoms Skin: Reports: no symptoms Neurological: Reports: no symptoms Psychiatric: Reports: no symptoms - Patient Data Vitals - most recent: Last Vital Signs Temp 37.1 C 07/21/16 16:48 Pulse 77 07/21/16 16:48 Resp 18 07/21/16 16:48 BP 144/86 H 07/21/16 17:39 Pulse Ox 91 L 07/21/16 16:48 Weight - most recent: 65.544 kg I&O - last 24 hours: Intake & Output 07/21/16 07/21/16 07/21/16 06:59 14:59 22:59 Intake Total 928 420 240 Output Total 1300 Balance -372 420 240 Lab Results last 24 hrs: Laboratory Results - last 24 hr 07/21/16 07/21/16 Range/Units 06:24 06:24 WBC 6.10 (3.98-10.04) K/mm3 RBC 4.17 (3.98-5.22) M/mm3 Hgb 13.8 (11.2-15.7) gm/L Hct 40.4 (34.1-44.9) % MCV 96.9 H (79.4-94.8) fl MCH 33.1 H (25.6-32.2) pg MCHC 34.2 (32.2-35.5) g/dl RDW Std Deviation 40.4 (36.4-46.3) fL Plt Count 226 (182-369) K/mm3 MPV 9.3 L (9.4-12.3) fl Neut % (Auto) 42.3 (34.0-71.1) % Lymph % (Auto) 43.4 (19.3-51.7) % [place] % (Auto) 12.8 H (4.7-12.5) % Eos % (Auto) 1.0 (0.7-5.8) Baso % (Auto) 0.3 (0.1-1.2) % Neut # 2.58 (1.56-6.13) K/mm3 Lymph # 2.65 (1.18-3.74) K/mm3 [place] # 0.78 H (0.24-0.36) K/mm3 Eos # 0.06 (0.04-0.36) K/mm3 Baso # 0.02 (0.01-0.08) K/mm3 Sodium 137 (136-145) mEq/L Potassium 4.0 (3.5-5.1) mEq/L Chloride 102 (98-107) mEq/L Carbon Dioxide 29 (21-32) mEq/L Anion Gap 10.0 (5-15) BUN 13 (7-18) mg/dL Creatinine 0.7 (0.55-1.02) mg/dL Est Cr Clr Drug Dosing 45.95 mL/min Estimated GFR (MDRD) > 60 (>60) mL/min BUN/Creatinine Ratio 18.6 H (14-18) Glucose 97 (83-115) mg/dL Calcium 8.7 (8.5-10.1) mg/dL Med Orders - Current: Current Medications Acetaminophen (Tylenol) 650 mg PO Q4H PRN PRN Reason: Headache Aspirin (Halfprin) 81 mg PO ACLUNCH [facility] Last Admin: 07/21/16 09:48 Dose: 81 mg Donepezil HCl (Aricept) 5 mg PO BEDTIME [facility] Last Admin: 07/20/16 20:58 Dose: 5 mg Doxazosin Mesylate (Cardura) 2 mg PO BEDTIME [facility] Last Admin: 07/20/16 20:59 Dose: Not Given Enoxaparin Sodium (Lovenox) 40 mg SUBCUT DAILY [facility] Last Admin: 07/21/16 09:48 Dose: 40 mg Hydralazine HCl (Apresoline) 20 mg IVPUSH Q8H PRN PRN Reason: Hypertension Last Admin: 07/19/16 16:04 Dose: 20 mg Hydrochlorothiazide (Hydrochlorothiazide) 25 mg PO DAILY [facility] Last Admin: 07/21/16 09:48 Dose: 25 mg Ceftriaxone Sodium 1 gm/ (Sodium Chloride) 100 mls @ 200 mls/hr IV Q24H [facility] Last Admin: 07/21/16 17:40 Dose: 200 mls/hr Promethazine HCl 25 mg/ Sodium (Chloride) 51 mls @ 100 mls/hr IV Q6H PRN PRN Reason: Nausea/Vomiting Last Admin: 07/19/16 19:40 Dose: 100 mls/hr Lactated Ringer's (Ringers, Lactated) 1,000 mls @ 50 mls/hr IV ASDIRECTED [facility] Last Admin: 07/20/16 16:26 Dose: 50 mls/hr Levothyroxine Sodium (Levothyroxine) 125 mcg PO ACBREAKFAST [facility] Last Admin: 07/21/16 06:26 Dose: 125 mcg Lorazepam (Ativan) 0.5 mg PO BEDTIME [facility] Last Admin: 07/20/16 20:59 Dose: 0.5 mg Losartan Potassium (Cozaar) 50 mg PO BIDPC [facility] Last Admin: 07/21/16 17:39 Dose: 50 mg Magnesium Hydroxide (Milk Of Magnesia) 30 ml PO DAILY PRN PRN Reason: Constipation Last Admin: 07/20/16 09:05 Dose: 30 ml Ondansetron HCl (Zofran) 4 mg IVPUSH Q8H PRN PRN Reason: Nausea/Vomiting Pantoprazole Sodium (Protonix) 40 mg PO DAILY@0700 [facility] Last Admin: 07/21/16 06:26 Dose: 40 mg Potassium Chloride (Potassium Chloride Solution) 40 meq PO BID [facility] Stop: 07/22/16 09:01 Last Admin: 07/21/16 09:48 Dose: 40 meq Propranolol HCl (Inderal La) 80 mg PO BEDTIME [facility] Last Admin: 07/20/16 21:00 Dose: Not Given Sertraline HCl (Zoloft) 50 mg PO BEDTIME [facility] Last Admin: 07/20/16 20:58 Dose: 50 mg Simvastatin (Zocor) 20 mg PO BEDTIME [facility] Sodium Chloride (Saline Flush) 40 ml FLUSH ONETIME PRN PRN Reason: Keep Vein Open Last Admin: 07/21/16 09:05 Dose: 40 ml Sucralfate (Carafate) 1 gm PO QID PRN PRN Reason: Indigestion Last Admin: 07/19/16 11:25 Dose: 1 gm Tramadol HCl (Ultram) 100 mg PO BID [facility] Last Admin: 07/21/16 09:47 Dose: 100 mg Discontinued Medications Gadobenate Dimeglumine (Multihance) 20 ml IVPUSH ONETIME ONE Stop: 07/21/16 08:12 Last Admin: 07/21/16 09:05 Dose: 20 ml Gadobenate Dimeglumine (Multihance) 20 ml IVPUSH ONETIME ONE Stop: 07/21/16 12:57 Last Admin: 07/21/16 13:46 Dose: 20 ml Hydralazine HCl (Apresoline) 5 mg PO ONETIME ONE Stop: 07/18/16 20:59 Last Admin: 07/18/16 21:10 Dose: 5 mg Hydralazine HCl (Apresoline) 5 mg IVPUSH ONETIME ONE Stop: 07/18/16 22:08 Last Admin: 07/18/16 22:16 Dose: 5 mg Lactated Ringer's (Ringers, Lactated) 1,000 mls @ 75 mls/hr IV ASDIRECTED [facility] Last Admin: 07/18/16 21:43 Dose: 75 mls/hr Meclizine HCl (Antivert) 12.5 mg PO ONETIME ONE Stop: 07/18/16 20:59 Last Admin: 07/18/16 21:10 Dose: 12.5 mg Meclizine HCl (Antivert) 12.5 mg PO ONETIME ONE Stop: 07/18/16 23:49 Last Admin: 07/18/16 23:55 Dose: 12.5 mg Meclizine HCl (Antivert) 12.5 mg PO ONETIME ONE Stop: 07/18/16 23:56 Last Admin: 07/19/16 00:01 Dose: Not Given Ondansetron HCl (Zofran) 4 mg IVPUSH ONETIME ONE Stop: 07/18/16 21:18 Last Admin: 07/18/16 21:42 Dose: 4 mg Ondansetron HCl (Zofran) 4 mg IVPUSH ONETIME ONE Stop: 07/19/16 00:48 Last Admin: 07/19/16 03:54 Dose: Not Given Ondansetron HCl (Zofran) Confirm Administered Dose 4 mg .ROUTE .STK-MED ONE Stop: 07/19/16 18:20 Last Admin: 07/19/16 18:22 Dose: 4 mg Sodium Chloride (Saline Flush) 40 ml FLUSH ONETIME PRN PRN Reason: Keep Vein Open Stop: 07/21/16 14:00 Last Admin: 07/21/16 13:46 Dose: 40 ml Terazosin HCl (Hytrin) 2 mg PO BEDTIME ONE Stop: 07/19/16 02:41 Last Admin: 07/19/16 03:52 Dose: Not Given - Exam Quality Assessment: DVT prophylaxis General: alert, oriented, cooperative, no acute distress HEENT: Pupils equal, Pupils reactive, EOMI Neck: supple, trachea midline, no JVD Lungs: Clear to auscultation, Normal respiratory effort Cardiovascular: regular rate, regular rhythm Abdomen: bowel sounds present, soft, no tenderness, no distension (Female) Exam: Deferred Back Exam: normal inspection Extremities: normal pulses Skin: warm Neurological: no new focal deficit, normal speech Psy/Mental Status: alert, normal affect, normal mood - Problem List & Annotations (1) High blood pressure SNOMED Code(s): 21571649 Code(s): I10 - ESSENTIAL (PRIMARY) HYPERTENSION Status: Acute Current Visit: No (2) Syncope SNOMED Code(s): 193583184 Code(s): R55 - SYNCOPE AND COLLAPSE Status: Acute Current Visit: No Qualifiers: Qualified Code(s): R55 - Syncope and collapse - Problem List Review Problem List Initiated/Reviewed/Updated: Yes - My Orders Last 24 Hours: My Active Orders 07/20/16 21:00 Potassium Chloride [Potassium Chloride Solution] 40 meq PO BID Sertraline [Zoloft] 50 mg PO BEDTIME 07/21/16 08:11 Sodium Chloride 0.9% [Saline Flush] 40 ml FLUSH ONETIME PRN 07/21/16 09:00 Enoxaparin [Lovenox] 40 mg SUBCUT DAILY 07/21/16 11:00 Consult to [employer] [CONS] Routine 07/21/16 21:00 Simvastatin [Zocor] 20 mg PO BEDTIME 07/22/16 05:00 BASIC METABOLIC PANEL,BMP [CHEM] DAILY CBC WITH AUTO DIFF [HEME] DAILY - Plan Plan:: Impression: Mild AMS with recent exacerbation of dizziness; resolved Presumptive treatment of vertigo as an outpatient. CVA work up WNL; await 2D echo. UTI Migraine headaches with recent Inderal added by PCP Systolic hypertension, improved with med changes Chronic Hypothyroid Plan: Continue alpha christiano, Cardura 2 mg daily. Rocephin Home meds Hold Antivert Consult PT/OT/SW May require SNF at [place] for rehab.
[2016-07-21] MEDS: Donepezil 10 MG Tab PO SCH (20:59)
[2016-07-21] MEDS: LORazepam 0.5 MG Tab PO SCH (20:59)
[2016-07-21] MEDS ORDERED: Simvastatin 20 MG Tab PO SCH (21:00)
[2016-07-21] MEDS: Doxazosin 2 MG Tab PO SCH (21:00)
[2016-07-21] MEDS: Propranolol 80 MG Cap.ER PO SCH (21:02)
[2016-07-21] MEDS: Sertraline 50 MG Tab PO SCH (21:02)
[2016-07-22] MEDS: Pantoprazole 40 MG Tab.CR PO SCH (06:37)
[2016-07-22] MEDS: Levothyroxine 125 MCG Tab PO SCH (06:37)
[2016-07-22] MEDS: Aspirin 81 MG Tab.EC PO SCH (09:38)
[2016-07-22] MEDS: Hydrochlorothiazide 25 MG Tab PO SCH (09:38)
[2016-07-22] MEDS: Enoxaparin 40 MG/0.4 ML Syringe SUBCUT SCH (09:39)
[2016-07-22] MEDS: Potassium Chloride 10% 20 MEQ/15 ML Soln 15 ML UD Cup PO SCH ×2 (09:39→09:41)
[2016-07-22] MEDS: traMADol 50 MG Tab PO SCH (09:39)
[2016-07-22] MEDS: Losartan 25 MG Tab PO SCH (09:43)
[2016-07-22 09:46] VITALS: BP 101/61
--- NOTE | 2016-07-22 10:04 | PCM.DCSUM1 ---
<Michelle Gutierrez - Last Filed: 07/22/16 09:53> Discharge Summary - Hospital Course Free Text/Narrative:: 86 year old female with complaint of dizziness has also had profoundly labile blood pressure. On presentation, the SBP was greater than 190. The patient could not be controlled on Apresoline. However a very small dose of 10 mg IV was given. She has had chronic headaches, as well as a change of vision and an unstable gait. Recent medication changes have been made including starting Inderal for headaches as well as increasing Cozaar 25-->50 mg daily. AMS was noted on the ED evaluation, a mild UTI has been documented with trace leukocytes. A posterior circulation evaluation will be pursued to shed light on the gait instability and reportedly vertigo; central vertigo has not been excluded. Patient was admitted to medical surgical unit for above noted eval; TIA/stroke eval. Head CT done in the ER was negative; MRI/MRA of brain and carotids also unremarkable. Echocardiogram was obtained with EF of 66%, no significant valvular abnormalities noted. Blood pressures continued to be liable ranging 180 -190's to 90's systolically. Cardura was added at HS and HCTZ during the day to her usual home antihypertensive medications. Normal study results were reviewed with patient and family members. Anxiety as contributing cause was briefly discussed. Patient will keep home b/p log of pressures BID x 1 week and follow up with PCP, Dr. Lamar next week. Dr. Ayala and I did speak with Dr. Lamar this morning, updated on normal study results and case review and of patient discharge expected today. She will continue with outpatient Physical Therapy upon discharge. - Discharge Data Discharge Date: 07/22/16 (admit date 07/19/16) Discharge Disposition: Home, Self-Care 01 Condition: Good - Patient Summary/Data Operative Procedure(s) Performed: None Complications: None Consults: Consultations 07/19/16 10:44 Consult to Occupational Therapy [OT Evaluation and Treatment] [CONS] Routine PT Evaluation and Treatment [CONS] Routine 07/21/16 11:00 Consult to Crib Pad Maker [CONS] Routine Labs Pending at D/C: None Recommended Follow-up Testing/Procedures: Follow up with Dr. Lamar, PCP within 1 week of discharge with log of b/p's for his review. Planned Operative Procedure(s) after DC: None Hospital Course: As above - Patient Instructions Diet: Heart Healthy Diet, Low Sodium Activity: As Tolerated (continue with Physical Therapy as outpatient) Showering/Bathing: May Shower Notify Provider of: Fever, Increased Pain (dizziness, weakness, headache, chest pains) - Discharge Plan Prescriptions/Med Rec: Doxazosin [Cardura] 2 mg PO BEDTIME #30 tablet Hydrochlorothiazide 25 mg PO DAILY #30 tablet Simvastatin [Zocor] 20 mg PO BEDTIME #30 tablet Home Medications: Home Meds Acetaminophen [Tylenol Extra Strength] 1,000 mg PO BID 03/09/15 [History] Aspirin 81 mg PO ACLUNCH 03/09/15 [History] B2/Vit A,C & E/Lut/Zeaxanth/Mn [Icaps] 1 tab PO BID 03/09/15 [History] LORazepam 0.5 mg PO BEDTIME 03/09/15 [History] Levothyroxine 125 mcg PO DAILY 03/09/15 [History] Losartan [Cozaar] 50 mg PO DAILY 03/09/15 [History] Pantoprazole [Protonix] 40 mg PO DAILY 03/09/15 [History] Calcium Polycarbophil [Fiber Tabs] 1 tab PO ACLUNCH 11/19/15 [History] Ondansetron [Zofran] 4 mg PO ASDIRECTED PRN 11/19/15 [History] Sertraline [Zoloft] 50 mg PO BEDTIME 11/19/15 [History] Sucralfate [Carafate] 1 gm PO ASDIRECTED PRN 11/19/15 [History] Vitamin B Complex 1 cap PO ACLUNCH 11/19/15 [History] traMADol [Ultram] 100 mg PO BID 11/19/15 [History] Propranolol [Inderal] 80 mg PO BEDTIME 07/18/16 [History] Donepezil [Aricept] 5 mg PO BEDTIME 07/19/16 [History] Doxazosin [Cardura] 2 mg PO BEDTIME #30 tablet 07/22/16 [Rx] Hydrochlorothiazide 25 mg PO DAILY #30 tablet 07/22/16 [Rx] Simvastatin [Zocor] 20 mg PO BEDTIME #30 tablet 07/22/16 [Rx] Patient Handouts: Hypertension, [id number] Forms: ED Department Discharge Referrals: Jose Anderson MD [Primary Care Provider] - (Please see Dr. Lamar on Thursday at 2:45 PM on 07/28/16 at [facility].) - Discharge Summary/Plan Comment DC Time >30 min.: Yes (40 min) - General Info Date of Service: 07/22/16 Admission Dx/Problem (Free Text: High blood pressure, labile b/p, vertigo Functional Status: Reports: pain controlled, tolerating diet, ambulating, urinating. Denies: new symptoms - Review of Systems General: Reports: no symptoms HEENT: Reports: no symptoms Pulmonary: Reports: no symptoms Cardiovascular: Reports: no symptoms Gastrointestinal: Reports: No symptoms Genitourinary: Reports: no symptoms Musculoskeletal: Reports: no symptoms Skin: Reports: no symptoms Neurological: Reports: no symptoms Psychiatric: Reports: no symptoms, anxiety - Patient Data Vitals - Most Recent: Last Vital Signs Temp 98.1 F 07/22/16 08:05 Pulse 74 07/22/16 08:05 Resp 20 07/22/16 08:05 BP 101/61 07/22/16 09:43 Pulse Ox 95 07/22/16 08:05 Weight - Most Recent: 65.363 kg I&O - Last 24 hours: Intake & Output 07/21/16 07/22/16 07/22/16 22:59 06:59 14:59 Intake Total 2330 1200 Output Total 1500 750 Balance 830 450 Lab Results - Last 24 hrs: Laboratory Results - last 24 hr 07/22/16 07/22/16 Range/Units 06:06 06:06 WBC 5.53 (3.98-10.04) K/mm3 RBC 4.00 (3.98-5.22) M/mm3 Hgb 13.2 (11.2-15.7) gm/L Hct 39.5 (34.1-44.9) % MCV 98.8 H (79.4-94.8) fl MCH 33.0 H (25.6-32.2) pg MCHC 33.4 (32.2-35.5) g/dl RDW Std Deviation 42.3 (36.4-46.3) fL Plt Count 210 (182-369) K/mm3 MPV 9.3 L (9.4-12.3) fl Neut % (Auto) 61.5 (34.0-71.1) % Lymph % (Auto) 25.9 (19.3-51.7) % [place] % (Auto) 10.8 (4.7-12.5) % Eos % (Auto) 1.3 (0.7-5.8) Baso % (Auto) 0.5 (0.1-1.2) % Neut # 3.40 (1.56-6.13) K/mm3 Lymph # 1.43 (1.18-3.74) K/mm3 [place] # 0.60 H (0.24-0.36) K/mm3 Eos # 0.07 (0.04-0.36) K/mm3 Baso # 0.03 (0.01-0.08) K/mm3 Sodium 134 L (136-145) mEq/L Potassium 4.3 (3.5-5.1) mEq/L Chloride 100 (98-107) mEq/L Carbon Dioxide 29 (21-32) mEq/L Anion Gap 9.3 (5-15) BUN 14 (7-18) mg/dL Creatinine 0.9 (0.55-1.02) mg/dL Est Cr Clr Drug Dosing 35.74 mL/min Estimated GFR (MDRD) 59 (>60) mL/min BUN/Creatinine Ratio 15.6 (14-18) Glucose 140 H (83-115) mg/dL Calcium 8.7 (8.5-10.1) mg/dL Med Orders - Current: Current Medications Acetaminophen (Tylenol) 650 mg PO Q4H PRN PRN Reason: Headache Aspirin (Halfprin) 81 mg PO ACLUNCH [facility] Last Admin: 07/22/16 09:38 Dose: 81 mg Donepezil HCl (Aricept) 5 mg PO BEDTIME [facility] Last Admin: 07/21/16 20:59 Dose: 5 mg Doxazosin Mesylate (Cardura) 2 mg PO BEDTIME [facility] Last Admin: 07/21/16 21:00 Dose: 2 mg Enoxaparin Sodium (Lovenox) 40 mg SUBCUT DAILY [facility] Last Admin: 07/22/16 09:39 Dose: 40 mg Hydralazine HCl (Apresoline) 20 mg IVPUSH Q8H PRN PRN Reason: Hypertension Last Admin: 07/19/16 16:04 Dose: 20 mg Hydrochlorothiazide (Hydrochlorothiazide) 25 mg PO DAILY [facility] Last Admin: 07/22/16 09:38 Dose: 25 mg Promethazine HCl 25 mg/ Sodium (Chloride) 51 mls @ 100 mls/hr IV Q6H PRN PRN Reason: Nausea/Vomiting Last Admin: 07/19/16 19:40 Dose: 100 mls/hr Levothyroxine Sodium (Levothyroxine) 125 mcg PO ACBREAKFAST [facility] Last Admin: 07/22/16 06:37 Dose: 125 mcg Lorazepam (Ativan) 0.5 mg PO BEDTIME [facility] Last Admin: 07/21/16 20:59 Dose: 0.5 mg Losartan Potassium (Cozaar) 50 mg PO BIDPC [facility] Last Admin: 07/22/16 09:43 Dose: Not Given Magnesium Hydroxide (Milk Of Magnesia) 30 ml PO DAILY PRN PRN Reason: Constipation Last Admin: 07/20/16 09:05 Dose: 30 ml Ondansetron HCl (Zofran) 4 mg IVPUSH Q8H PRN PRN Reason: Nausea/Vomiting Last Admin: 07/22/16 06:37 Dose: 4 mg Pantoprazole Sodium (Protonix) 40 mg PO DAILY@0700 [facility] Last Admin: 07/22/16 06:37 Dose: 40 mg Propranolol HCl (Inderal La) 80 mg PO BEDTIME [facility] Last Admin: 07/21/16 21:02 Dose: 80 mg Sertraline HCl (Zoloft) 50 mg PO BEDTIME [facility] Last Admin: 07/21/16 21:02 Dose: 50 mg Simvastatin (Zocor) 20 mg PO BEDTIME [facility] Last Admin: 07/21/16 20:59 Dose: 20 mg Sodium Chloride (Saline Flush) 40 ml FLUSH ONETIME PRN PRN Reason: Keep Vein Open Last Admin: 07/21/16 09:05 Dose: 40 ml Sucralfate (Carafate) 1 gm PO QID PRN PRN Reason: Indigestion Last Admin: 07/19/16 11:25 Dose: 1 gm Tramadol HCl (Ultram) 100 mg PO BID [facility] Last Admin: 07/22/16 09:39 Dose: Not Given Discontinued Medications Gadobenate Dimeglumine (Multihance) 20 ml IVPUSH ONETIME ONE Stop: 07/21/16 08:12 Last Admin: 07/21/16 09:05 Dose: 20 ml Gadobenate Dimeglumine (Multihance) 20 ml IVPUSH ONETIME ONE Stop: 07/21/16 12:57 Last Admin: 07/21/16 13:46 Dose: 20 ml Hydralazine HCl (Apresoline) 5 mg PO ONETIME ONE Stop: 07/18/16 20:59 Last Admin: 07/18/16 21:10 Dose: 5 mg Hydralazine HCl (Apresoline) 5 mg IVPUSH ONETIME ONE Stop: 07/18/16 22:08 Last Admin: 07/18/16 22:16 Dose: 5 mg Lactated Ringer's (Ringers, Lactated) 1,000 mls @ 75 mls/hr IV ASDIRECTED [facility] Last Admin: 07/18/16 21:43 Dose: 75 mls/hr Ceftriaxone Sodium 1 gm/ (Sodium Chloride) 100 mls @ 200 mls/hr IV Q24H [facility] Last Admin: 07/21/16 17:40 Dose: 200 mls/hr Lactated Ringer's (Ringers, Lactated) 1,000 mls @ 50 mls/hr IV ASDIRECTED [facility] Last Admin: 07/20/16 16:26 Dose: 50 mls/hr Meclizine HCl (Antivert) 12.5 mg PO ONETIME ONE Stop: 07/18/16 20:59 Last Admin: 07/18/16 21:10 Dose: 12.5 mg Meclizine HCl (Antivert) 12.5 mg PO ONETIME ONE Stop: 07/18/16 23:49 Last Admin: 07/18/16 23:55 Dose: 12.5 mg Meclizine HCl (Antivert) 12.5 mg PO ONETIME ONE Stop: 07/18/16 23:56 Last Admin: 07/19/16 00:01 Dose: Not Given Ondansetron HCl (Zofran) 4 mg IVPUSH ONETIME ONE Stop: 07/18/16 21:18 Last Admin: 07/18/16 21:42 Dose: 4 mg Ondansetron HCl (Zofran) 4 mg IVPUSH ONETIME ONE Stop: 07/19/16 00:48 Last Admin: 07/19/16 03:54 Dose: Not Given Ondansetron HCl (Zofran) Confirm Administered Dose 4 mg .ROUTE .STK-MED ONE Stop: 07/19/16 18:20 Last Admin: 07/19/16 18:22 Dose: 4 mg Potassium Chloride (Potassium Chloride Solution) 40 meq PO BID [place] Stop: 07/22/16 09:01 Last Admin: 07/22/16 09:41 Dose: Not Given Sodium Chloride (Saline Flush) 40 ml FLUSH ONETIME PRN PRN Reason: Keep Vein Open Stop: 07/21/16 14:00 Last Admin: 07/21/16 13:46 Dose: 40 ml Terazosin HCl (Hytrin) 2 mg PO BEDTIME ONE Stop: 07/19/16 02:41 Last Admin: 07/19/16 03:52 Dose: Not Given - Exam Quality Assessment: Reports: DVT prophylaxis General: Reports: alert, oriented, cooperative, no acute distress HEENT: Reports: Pupils equal, Pupils reactive, EOMI, Mucous membr. moist/pink Neck: Reports: supple Lungs: Reports: Clear to auscultation, Normal respiratory effort Cardiovascular: Reports: regular rate, regular rhythm Abdomen: Reports: bowel sounds present, soft, no tenderness, no distension (Female) Exam: Deferred Rectal (Female) Exam: Deferred Back Exam: Reports: normal inspection Extremities: Reports: no edema Skin: Reports: warm, dry, intact Neurological: Reports: no new focal deficit Psy/Mental Status: Reports: alert, normal affect, normal mood *Q Meaningful Use (DIS) - VTE *Q VTE Criteria *Q: - Stroke *Q Stroke Criteria *Q: - AMI *Q AMI Criteria *Q: <Ebony Ayala - Last Filed: 07/22/16 19:52> Discharge Summary - Hospital Course Free Text/Narrative:: See above, a significant anxiety component appears to be a factor. - Discharge Diagnosis/Problem(s) (1) High blood pressure SNOMED Code(s): 99010173 ICD Code: I10 - ESSENTIAL (PRIMARY) HYPERTENSION Status: Acute (2) Syncope SNOMED Code(s): 206225614 ICD Code: R55 - SYNCOPE AND COLLAPSE Status: Acute Qualifiers: Qualified Code(s): R55 - Syncope and collapse - Patient Summary/Data Consults: Consultations 07/19/16 10:44 Consult to Occupational Therapy [OT Evaluation and Treatment] [CONS] Routine PT Evaluation and Treatment [CONS] Routine 07/21/16 11:00 Consult to Crib Pad Maker [CONS] Routine - Patient Data Vitals - Most Recent: Last Vital Signs Temp 36.7 C 07/22/16 08:05 Pulse 74 07/22/16 08:05 Resp 20 07/22/16 08:05 BP 101/61 07/22/16 09:43 Pulse Ox 95 07/22/16 08:05 I&O - Last 24 hours: Intake & Output 07/22/16 07/22/16 07/22/16 06:59 14:59 22:59 Intake Total 1200 240 Output Total 750 Balance 450 240 Lab Results - Last 24 hrs: Laboratory Results - last 24 hr 07/22/16 07/22/16 Range/Units 06:06 06:06 WBC 5.53 (3.98-10.04) K/mm3 RBC 4.00 (3.98-5.22) M/mm3 Hgb 13.2 (11.2-15.7) gm/L Hct 39.5 (34.1-44.9) % MCV 98.8 H (79.4-94.8) fl MCH 33.0 H (25.6-32.2) pg MCHC 33.4 (32.2-35.5) g/dl RDW Std Deviation 42.3 (36.4-46.3) fL Plt Count 210 (182-369) K/mm3 MPV 9.3 L (9.4-12.3) fl Neut % (Auto) 61.5 (34.0-71.1) % Lymph % (Auto) 25.9 (19.3-51.7) % [place] % (Auto) 10.8 (4.7-12.5) % Eos % (Auto) 1.3 (0.7-5.8) Baso % (Auto) 0.5 (0.1-1.2) % Neut # 3.40 (1.56-6.13) K/mm3 Lymph # 1.43 (1.18-3.74) K/mm3 [place] # 0.60 H (0.24-0.36) K/mm3 Eos # 0.07 (0.04-0.36) K/mm3 Baso # 0.03 (0.01-0.08) K/mm3 Sodium 134 L (136-145) mEq/L Potassium 4.3 (3.5-5.1) mEq/L Chloride 100 (98-107) mEq/L Carbon Dioxide 29 (21-32) mEq/L Anion Gap 9.3 (5-15) BUN 14 (7-18) mg/dL Creatinine 0.9 (0.55-1.02) mg/dL Est Cr Clr Drug Dosing 35.74 mL/min Estimated GFR (MDRD) 59 (>60) mL/min BUN/Creatinine Ratio 15.6 (14-18) Glucose 140 H (83-115) mg/dL Calcium 8.7 (8.5-10.1) mg/dL Med Orders - Current: Current Medications Discontinued Medications Acetaminophen (Tylenol) 650 mg PO Q4H PRN PRN Reason: Headache Aspirin (Halfprin) 81 mg PO ACLUNCH [facility] Last Admin: 07/22/16 09:38 Dose: 81 mg Donepezil HCl (Aricept) 5 mg PO BEDTIME [facility] Last Admin: 07/21/16 20:59 Dose: 5 mg Doxazosin Mesylate (Cardura) 2 mg PO BEDTIME [facility] Last Admin: 07/21/16 21:00 Dose: 2 mg Enoxaparin Sodium (Lovenox) 40 mg SUBCUT DAILY [facility] Last Admin: 07/22/16 09:39 Dose: 40 mg Gadobenate Dimeglumine (Multihance) 20 ml IVPUSH ONETIME ONE Stop: 07/21/16 08:12 Last Admin: 07/21/16 09:05 Dose: 20 ml Gadobenate Dimeglumine (Multihance) 20 ml IVPUSH ONETIME ONE Stop: 07/21/16 12:57 Last Admin: 07/21/16 13:46 Dose: 20 ml Hydralazine HCl (Apresoline) 5 mg PO ONETIME ONE Stop: 07/18/16 20:59 Last Admin: 07/18/16 21:10 Dose: 5 mg Hydralazine HCl (Apresoline) 5 mg IVPUSH ONETIME ONE Stop: 07/18/16 22:08 Last Admin: 07/18/16 22:16 Dose: 5 mg Hydralazine HCl (Apresoline) 20 mg IVPUSH Q8H PRN PRN Reason: Hypertension Last Admin: 07/19/16 16:04 Dose: 20 mg Hydrochlorothiazide (Hydrochlorothiazide) 25 mg PO DAILY [facility] Last Admin: 07/22/16 09:38 Dose: 25 mg Lactated Ringer's (Ringers, Lactated) 1,000 mls @ 75 mls/hr IV ASDIRECTED [facility] Last Admin: 07/18/16 21:43 Dose: 75 mls/hr Ceftriaxone Sodium 1 gm/ (Sodium Chloride) 100 mls @ 200 mls/hr IV Q24H [facility] Last Admin: 07/21/16 17:40 Dose: 200 mls/hr Promethazine HCl 25 mg/ Sodium (Chloride) 51 mls @ 100 mls/hr IV Q6H PRN PRN Reason: Nausea/Vomiting Last Admin: 07/19/16 19:40 Dose: 100 mls/hr Lactated Ringer's (Ringers, Lactated) 1,000 mls @ 50 mls/hr IV ASDIRECTED [facility] Last Admin: 07/20/16 16:26 Dose: 50 mls/hr Levothyroxine Sodium (Levothyroxine) 125 mcg PO ACBREAKFAST [facility] Last Admin: 07/22/16 06:37 Dose: 125 mcg Lorazepam (Ativan) 0.5 mg PO BEDTIME [facility] Last Admin: 07/21/16 20:59 Dose: 0.5 mg Losartan Potassium (Cozaar) 50 mg PO BIDPC [facility] Last Admin: 07/22/16 09:43 Dose: Not Given Magnesium Hydroxide (Milk Of Magnesia) 30 ml PO DAILY PRN PRN Reason: Constipation Last Admin: 07/20/16 09:05 Dose: 30 ml Meclizine HCl (Antivert) 12.5 mg PO ONETIME ONE Stop: 07/18/16 20:59 Last Admin: 07/18/16 21:10 Dose: 12.5 mg Meclizine HCl (Antivert) 12.5 mg PO ONETIME ONE Stop: 07/18/16 23:49 Last Admin: 07/18/16 23:55 Dose: 12.5 mg Meclizine HCl (Antivert) 12.5 mg PO ONETIME ONE Stop: 07/18/16 23:56 Last Admin: 07/19/16 00:01 Dose: Not Given Ondansetron HCl (Zofran) 4 mg IVPUSH ONETIME ONE Stop: 07/18/16 21:18 Last Admin: 07/18/16 21:42 Dose: 4 mg Ondansetron HCl (Zofran) 4 mg IVPUSH ONETIME ONE Stop: 07/19/16 00:48 Last Admin: 07/19/16 03:54 Dose: Not Given Ondansetron HCl (Zofran) Confirm Administered Dose 4 mg .ROUTE .STK-MED ONE Stop: 07/19/16 18:20 Last Admin: 07/19/16 18:22 Dose: 4 mg Ondansetron HCl (Zofran) 4 mg IVPUSH Q8H PRN PRN Reason: Nausea/Vomiting Last Admin: 07/22/16 06:37 Dose: 4 mg Pantoprazole Sodium (Protonix) 40 mg PO DAILY@0700 [facility] Last Admin: 07/22/16 06:37 Dose: 40 mg Potassium Chloride (Potassium Chloride Solution) 40 meq PO BID [facility] Stop: 07/22/16 09:01 Last Admin: 07/22/16 09:41 Dose: Not Given Propranolol HCl (Inderal La) 80 mg PO BEDTIME [facility] Last Admin: 07/21/16 21:02 Dose: 80 mg Sertraline HCl (Zoloft) 50 mg PO BEDTIME [facility] Last Admin: 07/21/16 21:02 Dose: 50 mg Simvastatin (Zocor) 20 mg PO BEDTIME [facility] Last Admin: 07/21/16 20:59 Dose: 20 mg Sodium Chloride (Saline Flush) 40 ml FLUSH ONETIME PRN PRN Reason: Keep Vein Open Last Admin: 07/21/16 09:05 Dose: 40 ml Sodium Chloride (Saline Flush) 40 ml FLUSH ONETIME PRN PRN Reason: Keep Vein Open Stop: 07/21/16 14:00 Last Admin: 07/21/16 13:46 Dose: 40 ml Sucralfate (Carafate) 1 gm PO QID PRN PRN Reason: Indigestion Last Admin: 07/19/16 11:25 Dose: 1 gm Terazosin HCl (Hytrin) 2 mg PO BEDTIME ONE Stop: 07/19/16 02:41 Last Admin: 07/19/16 03:52 Dose: Not Given Tramadol HCl (Ultram) 100 mg PO BID [facility] Last Admin: 07/22/16 09:39 Dose: Not Given *Q Meaningful Use (DIS) - VTE *Q VTE Criteria *Q: - Stroke *Q Stroke Criteria *Q: - AMI *Q AMI Criteria *Q:
== END 2016-07-22 14:02 | disposition home or self-care (01) | DRG 948 ==
LOC: JD.ED 20:14 → JD.MS 07-19 01:16
PROVIDERS: ADMIT Internal Medicine Cardiovascular Disease; ATTEND Internal Medicine Cardiovascular Disease
DX: I16.0 Hypertensive urgency (principal); R41.82 Altered mental status, unspecified; N39.0 Urinary tract infection, site not specified; R42 Dizziness and giddiness; R51 Headache; Z96.659 Presence of unspecified artificial knee joint; R55 Syncope and collapse; G43.909 Migraine, unspecified, not intractable, without status migrainosus; I10 Essential (primary) hypertension; E03.9 Hypothyroidism, unspecified; H91.90 Unspecified hearing loss, unspecified ear; K59.00 Constipation, unspecified; R32 Unspecified urinary incontinence; Z96.651 Presence of right artificial knee joint; H53.9 Unspecified visual disturbance; R26.81 Unsteadiness on feet; Z79.82 Long term (current) use of aspirin; Z79.899 Other long term (current) drug therapy
CPT/HCPCS: 36415; 70450; 80053; 81001; 85025; 93005; 96361; 96374; 96375; 99285; A9270 ×3; J0360; J2405; J7120; 70548; 70548-26; 70553; 70553-26; 80048; 80061; 82607; 82746; 84443; 85652; 86038; 86140; 86738; 87086; 87804; 93306; 97110-GP; 97112-GP; 97116-GP; 97161-GP; 97165-GO; A9577; J0696; J1650; J2550; J7030; J7050

== ENCOUNTER 2016-12-20 14:12 | Observation (INO) | payer MEDICARE, BC ==
--- NOTE | 2016-12-20 14:33 | EDM.PDOC ---
ED HPI GENERAL MEDICAL PROBLEM - General Chief Complaint: Abdominal Pain Stated Complaint: [facility] Time Seen by Provider: 12/20/16 14:27 Source of Information: Reports: Patient History Limitations: Reports: No Limitations - History of Present Illness INITIAL COMMENTS - FREE TEXT/NARRATIVE: 78-year-old female arrives in the ED per ambulance. She resides at [facility] in the main building where she receives assistance. She reports recurrent nausea vomiting of bilious material 2 days with associated diffuse abdominal pain. States her bowels are working okay without blood. There's been no hematemesis. A lot of dry heaving. Reports 80% of her stomach is been resected due to peptic ulcer disease. She has had similar type problems in the past. Previous abdominal surgery includes cholecystectomy and appendectomy. Still she still has her uterus and ovaries. Pain radiates up into her anterior chest and mid chest one vomiting. Again no hematemesis. Is keeping down water and making urine. No fever or chills. Feels dizzy and weak when standing. She is unable to tolerate any solids 2 days. She has some concerns about possible foodborne illness. She does eat all her meals at [facility] in the dining room. No recent changes to any of her medications.. Onset: Other (2 days ago) Onset Date: 12/18/16 Onset Time: 19:00 Duration: Day(s): Location: Reports: Chest (Recurrent vomiting.), Abdomen (Abdominal pain generalized nonspecific to one area), Other Quality: Reports: Ache, Burning, Sharp (At times), Stabbing Severity: Moderate Improves with: Reports: None Worsens with: Reports: Other Context: Denies: Activity (Attempt to eat.), Exercise, Lifting, Sick Contact, Trauma, Other Associated Symptoms: Reports: Chest Pain, Loss of Appetite, Malaise, Nausea/ Vomiting, Shortness of Breath. 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 (see below) (She thinks she's been able to keep down most of her normal medications.) Abdominal Pain Score (Numeric/FACES): 10 - Related Data Allergies Allergy/AdvReac Type Severity Reaction Status Date / Time No Known Allergies Allergy Verified 12/20/16 14:28 Home Meds: Home Meds Acetaminophen [Tylenol Extra Strength] 650 mg PO BID 03/09/15 [History] Aspirin 81 mg PO ACLUNCH 03/09/15 [History] LORazepam 0.5 mg PO BEDTIME 03/09/15 [History] Levothyroxine 125 mcg PO DAILY 03/09/15 [History] Losartan [Cozaar] 50 mg PO DAILY 03/09/15 [History] Pantoprazole [ProTONIX] 40 mg PO DAILY 03/09/15 [History] Calcium Polycarbophil [Fiber Tabs] 1,250 mg PO DAILY 11/19/15 [History] Ondansetron [Zofran] 4 mg PO ASDIRECTED PRN 11/19/15 [History] Sertraline [Zoloft] 75 mg PO DAILY 11/19/15 [History] Sucralfate [Carafate] 1 gm PO TID 11/19/15 [History] traMADol [Ultram] 100 mg PO BID 11/19/15 [History] Propranolol [Inderal] 10 mg PO DAILY 07/18/16 [History] Simvastatin [Zocor] 20 mg PO BEDTIME #30 tablet 07/22/16 [Rx] Calcium Carbonate/Vitamin D3 [Calcium 250+D] 1 tab PO DAILY 12/20/16 [History] Cyanocobalamin (Vitamin B12) [Vitamin B12] 1 tab PO DAILY 12/20/16 [History] Denosumab [Prolia] 60 mg SQ ASDIRECTED 12/20/16 [History] Diclofenac Sodium [Voltaren 1% Gel] 1 dose TOP DAILY 12/20/16 [History] Hydrochlorothiazide 12.5 mg PO DAILY 12/20/16 [History] Vit A/Vit C/Vit E/Zinc/Copper [Preservision] 1 tab PO BID 12/20/16 [History] Past Medical History HEENT History: Reports: Hard of Hearing, Other (See Below) Other HEENT History: daughter states she will bring the hearing aids in in the morning. pt wears glasses and has dentures. 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: Musculoskeletal History: Reports: Osteoarthritis, Osteoporosis, Other (See Below ) Other Musculoskeletal History: fractures vertebrae, hx of right knee replacement has pain in it still so wears a brace to help with the pain, left knee is bone on bone so also hurts with ambulation Neurological History: Reports: Headaches, Chronic, Vertigo, Other (See Below) ( 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 The other knee is [id number]. Bilateral hip pain from osteoarthritis changes as well.) Social & Family History - Family History Family Medical History: Noncontributory - Tobacco Use Smoking Status *Q: Never Smoker Second Hand Smoke Exposure: No - Caffeine Use Caffeine Use: Reports: Other Other Caffeine Use: occassional coffee - Recreational Drug Use Recreational Drug Use: No - Living Situation & Occupation Living situation: Reports: Extended Care Facility (Currently residing at [facility] which is an assisted living program) Occupation: Retired ED ROS GENERAL - Review of Systems Review Of Systems: See Below Constitutional: Reports: Chills, Malaise, Weakness, Fatigue, Decreased Appetite , Weight Loss, Other (Feels lightheaded and dizzy with standing). Denies: Fever HEENT: Reports: Other (Sore throat from vomiting) Respiratory: Reports: Shortness of Breath. Denies: Wheezing, Pleuritic Chest Pain (On exertion), Cough, Sputum, Hemoptysis Cardiovascular: Reports: Chest Pain (Central chest and epigastrium from vomiting. She believes.) Endocrine: Reports: Fatigue GI/Abdominal: Reports: Abdominal Pain, Decreased Appetite, Nausea (See history of present illness), Vomiting (Intractable 2 days). Denies: Black Stool, Bloody Stool, Difficulty Swallowing, Flatus, Hematemesis : Reports: Frequency, Incontinence (Mostly stress induced.) Musculoskeletal: Reports: Joint Pain Skin: Reports: No Symptoms (Knees hips neck and low back at times.) Neurological: Reports: Dizziness (When she stands up the last few days.), Weakness Psychiatric: Reports: No Symptoms (Generalized weakness from not being able to eat or drink much the last 2 days.) Hematologic/Lymphatic: Reports: No Symptoms Immunologic: Reports: No Symptoms ED EXAM, GI/ABD - Physical Exam Exam: See Below Exam Limited By: No Limitations General Appearance: Alert, WD/WN, Mild Distress Eyes: Bilateral: Normal Appearance (No jaundice) Throat/Mouth: Other (Tongue is dry and coated. Wears dentures.) Neck: Normal Inspection, Non-Tender, Full Range of Motion. No: Lymphadenopathy (L), Lymphadenopathy (R) Respiratory/Chest: No Respiratory Distress, Lungs Clear, Normal Breath Sounds, No Accessory Muscle Use Cardiovascular: Normal Peripheral Pulses, Regular Rate, Rhythm, No Edema, No Gallop, No JVD, No Murmur, No Rub GI/Abdominal Exam: Soft (Diffuse tympany to percussion. Abdomen is soft palpation however no localized area of tenderness other than in the epigastrium. ), Tender (Epigastrium), Abnormal Bowel Sounds (Fairly hyperactive bowel sounds in all 4 quadrants.), Other. No: Guarding, Rigid, Rebound Back Exam: Normal Inspection, Full Range of Motion. No: CVA Tenderness (L), CVA Tenderness (R) Extremities: Normal Inspection, Normal Range of Motion, Non-Tender, No Pedal Edema, Normal Capillary Refill Neurological: Oriented, CN II-XII Intact, Normal Cognition Psychiatric: Normal Affect, Normal Mood Skin Exam: Warm, Dry, Intact, Normal Color, No Rash EKG INTERPRETATION EKG Date: 12/20/16 Time: 14:40 Rhythm: NSR Rate (Beats/Min): 75 [place]: RAD-Right [place] Deviation (Borderline right axis deviation) P-Wave: Present QRS: Other (Decreased voltage throughout the limb leads.) ST-T: Other (Normal frequent unifocal PVCs.) QT: Prolonged (Mildly prolonged at 411.) Course - Vital Signs Last Recorded V/S: Last Vital Signs Temp 36.3 C 12/20/16 14:16 Pulse 74 12/20/16 14:16 Resp 16 12/20/16 14:16 BP 163/93 H 12/20/16 14:16 Pulse Ox 100 12/20/16 14:16 - Orders/Labs/Meds Orders: Active Orders 24 hr Category Date Time Status EKG Documentation Completion [RC] STAT Care 12/20/16 14:29 Active Abdomen 1V Flat [CR] Stat Exams 12/20/16 14:29 Taken Chest 1V Frontal [CR] Stat Exams 12/20/16 14:29 Taken Dextrose 5%-0.9% NaCl [Dextrose 5%-Normal Saline] 1,000 Med 12/20/16 14:30 Active ml IV ASDIRECTED Medication Orders Dextrose/Sodium Chloride (Dextrose 5%-Normal Saline) 1,000 mls @ 150 mls/hr IV ASDIRECTED CURTIS Last Admin: 12/20/16 14:38 Dose: 150 mls/hr Labs: Laboratory Tests 12/20/16 12/20/16 12/20/16 Range/Units 14:23 14:23 14:23 WBC 6.04 (3.98-10.04) K/mm3 RBC 4.72 (3.98-5.22) M/mm3 Hgb 15.2 (11.2-15.7) gm/L Hct 42.3 (34.1-44.9) % MCV 89.6 (79.4-94.8) fl MCH 32.2 (25.6-32.2) pg MCHC 35.9 H (32.2-35.5) g/dl RDW Std Deviation 37.5 (36.4-46.3) fL Plt Count 298 (182-369) K/mm3 MPV 8.7 L (9.4-12.3) fl Neutrophils % (Manual) 73 H (40-60) % Band Neutrophils % 0 (0-10) % Lymphocytes % (Manual) 20 (20-40) % Atypical Lymphs % 0 % Monocytes % (Manual) 6 (2-10) % Eosinophils % (Manual) 1 (0.7-5.8) % Basophils % (Manual) 0 L (0.1-1.2) Platelet Estimate Adequate RBC Morph Comment Normal Sodium 124 L (136-145) mEq/L Potassium 4.2 (3.5-5.1) mEq/L Chloride 89 L (98-107) mEq/L Carbon Dioxide 27 (21-32) mEq/L Anion Gap 12.2 (5-15) BUN 7 (7-18) mg/dL Creatinine 0.8 (0.55-1.02) mg/dL Est Cr Clr Drug Dosing 38.44 mL/min Estimated GFR (MDRD) > 60 (>60) mL/min BUN/Creatinine Ratio 8.8 L (14-18) Glucose 121 H (83-115) mg/dL Serum Osmolality 258 L (280-300) mosm/kg Calcium 9.5 (8.5-10.1) mg/dL Total Bilirubin 0.8 (0.2-1.0) mg/dL AST 26 (15-37) U/L ALT 28 (14-59) U/L Alkaline Phosphatase 78 (46-116) U/L Troponin I < 0.017 (0.00-0.056) ng/mL C-Reactive Protein < 0.2 (<1.0) mg/dL [id number] Pept 132 (0-450) pg/mL Total Protein 7.9 (6.4-8.2) g/dl Albumin 4.4 (3.4-5.0) g/dl Globulin 3.5 gm/dL Albumin/Globulin Ratio 1.3 (1-2) Lipase 117 (73-393) U/L Urine Color (Yellow) Urine Appearance (Clear) Urine pH (5.0-8.0) Ur Specific [place] (1.005-1.030) Urine Protein (Negative) Urine Glucose (UA) (Negative) Urine Ketones (Negative) Urine Occult Blood (Negative) Urine Nitrite (Negative) Urine Bilirubin (Negative) Urine Urobilinogen (0.2-1.0) Ur Leukocyte Esterase (Negative) Urine RBC (0-5) /hpf Urine WBC (0-5) /hpf Ur Epithelial Cells (0-5) /hpf Urine Bacteria (FEW) /hpf Urine Mucus (FEW) /hpf 12/20/16 Range/Units 15:12 WBC (3.98-10.04) K/mm3 RBC (3.98-5.22) M/mm3 Hgb (11.2-15.7) gm/L Hct (34.1-44.9) % MCV (79.4-94.8) fl MCH (25.6-32.2) pg MCHC (32.2-35.5) g/dl RDW Std Deviation (36.4-46.3) fL Plt Count (182-369) K/mm3 MPV (9.4-12.3) fl Neutrophils % (Manual) (40-60) % Band Neutrophils % (0-10) % Lymphocytes % (Manual) (20-40) % Atypical Lymphs % % Monocytes % (Manual) (2-10) % Eosinophils % (Manual) (0.7-5.8) % Basophils % (Manual) (0.1-1.2) Platelet Estimate RBC Morph Comment Sodium (136-145) mEq/L Potassium (3.5-5.1) mEq/L Chloride (98-107) mEq/L Carbon Dioxide (21-32) mEq/L Anion Gap (5-15) BUN (7-18) mg/dL Creatinine (0.55-1.02) mg/dL Est Cr Clr Drug Dosing mL/min Estimated GFR (MDRD) (>60) mL/min BUN/Creatinine Ratio (14-18) Glucose (83-115) mg/dL Serum Osmolality (280-300) mosm/kg Calcium (8.5-10.1) mg/dL Total Bilirubin (0.2-1.0) mg/dL AST (15-37) U/L ALT (14-59) U/L Alkaline Phosphatase (46-116) U/L Troponin I (0.00-0.056) ng/mL C-Reactive Protein (<1.0) mg/dL [id number] Pept (0-450) pg/mL Total Protein (6.4-8.2) g/dl Albumin (3.4-5.0) g/dl Globulin gm/dL Albumin/Globulin Ratio (1-2) Lipase (73-393) U/L Urine Color Yellow (Yellow) Urine Appearance Slt cloudy H (Clear) Urine pH 7.5 (5.0-8.0) Ur Specific [place] 1.020 (1.005-1.030) Urine Protein Negative (Negative) Urine Glucose (UA) Negative (Negative) Urine Ketones 1+ H (Negative) Urine Occult Blood Trace-intact H (Negative) Urine Nitrite Negative (Negative) Urine Bilirubin Negative (Negative) Urine Urobilinogen 0.2 (0.2-1.0) Ur Leukocyte Esterase Negative (Negative) Urine RBC 0-5 (0-5) /hpf Urine WBC 0-5 (0-5) /hpf Ur Epithelial Cells 0-5 (0-5) /hpf Urine Bacteria Not seen (FEW) /hpf Urine Mucus Not seen (FEW) /hpf Meds: Medications Generic Name Dose Route Start Last Admin Trade Name Freq PRN Reason Stop Dose Admin Dextrose/Sodium Chloride 1,000 mls @ 150 mls/hr 12/20/16 14:30 12/20/16 14:38 Dextrose 5%-Normal Saline IV 150 mls/hr ASDIRECTED CURTIS Administration Discontinued Medications Generic Name Dose Route Start Last Admin Trade Name Freq PRN Reason Stop Dose Admin Diatrizoate Meglum/Diatrizoate Sod 45 ml 12/20/16 16:10 12/20/16 16:22 Gastrografin 37% PO 12/20/16 16:11 45 ml ONETIME ONE Administration Hydromorphone HCl 0.25 mg 12/20/16 14:37 12/20/16 14:59 Dilaudid IVPUSH 12/20/16 14:38 Not Given ONETIME ONE Ondansetron HCl 4 mg 12/20/16 14:37 12/20/16 14:46 Zofran IVPUSH 12/20/16 14:38 4 mg ONETIME ONE Administration - Radiology Interpretation Free Text/Narrative:: 86-year-old female arrives in the ED with a 2 day history of recurrent intractable nausea and vomiting of mostly bilious material. She is feeling dehydrated weak and dizzy when she stands. Still not able to tolerate any oral solid food. She has been able to maintain water. No fever or chills. Vital signs show she is hypertensive and is hypertensive chronically. Benign abdominal examination with hyperactive bowel sounds and slight tympany. No clinical evidence of obstruction. Bowel sounds been working regularly and normally. No blood in the emesis. Plan routine labs including a urinalysis. Lipase as well. Cardiac markers as well. Given IV D5 normal saline at 150 mils per hour. Dilaudid 0.25 mg IV for abdominal pain relief and Zofran 4 mg IV for nausea relief. - Re-Assessments/Exams Free Text/Narrative Re-Assessment/Exam: 12/20/16 15:14 patient refused her Dilaudid when it was offered to her as she stated her pain is eased up substantially. X-ray of the chest reveals some degree of pulmonary fibrosis in the lower lobes and mediastinal areas. Otherwise the lungs are clear and heart shadow is normal. Stomach suggests a large bolus of food possibly stool in the left upper quadrant of the abdomen. I have a suspicion this is in the gastric remnant and may represent of bezoar. There are no signs of bowel obstruction. The rest of the colon is relatively free of any significant stool. Plan CT of the abdomen and pelvis with oral contrast only. 12/20/16 15:30 labs reveal a total white count of 6.04 with hemoglobin 15.2. Hematocrit 42.3. Platelets normal 290,000. Sodium is 124 because she's been just drinking water. Potassium 4.2 chloride 89. Anion gap is 12.2. Glucose 121 lipase 117 creatinine 0.8. Therefore she is experiencing a dilutional hyponatremia. BNP is normal. 12/20/16 16:45 CT of the abdomen and pelvis has been completed. Visualized portions of the lower lung damon are clear. The liver itself contains multiple cystic lesions compatible with polycystic liver disease. This was noted on previous CT done in 2014. Unchanged. The gastric remnant contains contrast media and nothing else. Pancreas is extremely atrophic and actually bandlike. Adrenal glands and kidneys appear within normal limits for age. There are numerous calcifications within the uterus. Urinary bladder is quite full. No significant diverticulitis. Colon contains a fairly amount of stool particularly throughout the transverse colon and the left upper quadrant.. That this is what I was visualizing on plain film. Aorta shows atherosclerotic changes with continues into the iliac vessels. No retroperitoneal adenopathy or mesenteric abnormalities are noted. 12/20/16 16:49 patient has just had a very large bowel movement since the oral contrast went through her. I will discuss case with ventilation mechanic hospitalist Dr. Gant regards to admission to hospital to correct her hyponatremia. Serum osmolality is low at 258. Urinalysis essentially negative for any signs of infection. 12/20/16 16:55 spoke with ventilation mechanic hospitalist and patient will be admitted for observation status to [facility] surgery [facility]. Admitting diagnosis is intractable nausea and vomiting with hyponatremia. Departure - Departure Time of Disposition: 17:04 Disposition: Refer to Observation Condition: Fair Clinical Impression: Hyponatremia with decreased serum osmolality Intractable nausea and vomiting Qualifiers: Vomiting type: unspecified Qualified Code(s): R11.2 - Nausea with vomiting, unspecified - Discharge Information - My Orders Last 24 Hours: My Active Orders 12/20/16 14:29 EKG Documentation Completion [RC] STAT Abdomen 1V Flat [CR] Stat Chest 1V Frontal [CR] Stat 12/20/16 14:30 Dextrose 5%-0.9% NaCl [Dextrose 5%-Normal Saline] 1,000 ml IV ASDIRECTED - Assessment/Plan Last 24 Hours: My Active Orders 12/20/16 14:29 EKG Documentation Completion [RC] STAT Abdomen 1V Flat [CR] Stat Chest 1V Frontal [CR] Stat 12/20/16 14:30 Dextrose 5%-0.9% NaCl [Dextrose 5%-Normal Saline] 1,000 ml IV ASDIRECTED
[2016-12-20] MEDS ORDERED: HYDROmorphone 0.5 MG/0.5 ML Syringe IVPUSH ONE (14:37)
[2016-12-20] MEDS ORDERED: Ondansetron 4 MG/2 ML SDV IVPUSH ONE (14:37)
[2016-12-20] MEDS: Dextrose 5%-0.9% NaCl 1,000 ML IV SCH ×2 (14:38→22:28)
[2016-12-20] MEDS ORDERED: Diatrizoate Meglumine/Diatrizoate Sodium 37% 120 ML Bottle PO ONE (16:10)
--- NOTE | 2016-12-20 16:42 | CT ---
CT abdomen and pelvis Technique: Multiple axial sections were obtained from above the dome of the diaphragm inferiorly through the pubic symphysis. Intravenous contrast was not utilized. Oral contrast has been given. Comparison: Previous CT exam of 05/23/15 is available. Findings: Small portion of the visualized lung bases shows nothing acute. Multiple cysts are seen within both right and left lobes of liver which appear fairly stable from previous exam. Spleen shows a small calcification which is incidental. Spleen size is normal. Adrenal glands show no nodule. Kidneys show no hydronephrosis. No abnormal calcifications are seen within the kidneys. No ureteral dilatation is seen. Pancreas is atrophied. Aorta shows atherosclerotic change which continues into the iliac vessels. No retroperitoneal adenopathy or mesenteric abnormalities are seen. No pelvic mass or adenopathy is identified. Appendix is not visualized with certainty. There is slight bowel wall thickening seen within the right colon believed to be due to underdistention. No additional bowel abnormality is appreciated. Bone window settings were reviewed which shows a compression deformity of T12 which is stable. Scattered degenerative change is seen which appears stable. Impression: 1. Incidental findings. Nothing acute is appreciated on CT study of the abdomen and pelvis. No appreciable change is seen from previous CT exam. Diagnostic code #2
[2016-12-20] MEDS ORDERED: Metoclopramide 10 MG/2 ML SDV IVPUSH ONE (17:18)
--- NOTE | 2016-12-20 17:36 | PCM.HP ---
H&P History of Present Illness - General Date of Service: 12/20/16 Admit Problem/Dx: Admission Diagnosis/Problem Admission Diagnosis/Problem Hyponatremia Source of Information: Patient, Old Records, Provider, RN Notes Reviewed, Significant Other History Limitations: Reports: Physical Impairment, Other (Baseline Memory Impairment) - History of Present Illness Initial Comments - Free Text/Narative: This is an 86-year-old elderly white female with past medical history of Impaired Hearing, HTN, Constipation, Urinary Incontinence, Hypothyroidism, OA/DJD, Osteoporosis, Hx/o Vertebral Fx (T12), Hx/o Total RKA still wears brace to help with pain, Headaches, Vertigo, and Memory Impairment who presents to the emergency departments from [facility] due to intractable nausea and vomiting for 2 days now. She has not been able to tolerate any solid food. Patient describes her vomitus as bilious in nature. Her triple complaining is associated we the abdominal pain primarily in the epigastric region. She denies any other associated GI symptoms. Patient carries a history of peptic ulcers disease in which 80% of her stomach was resected. Patient is able to keep water down to stay hydrated. She denies any signs of systemic infection. However she admits to feeling weak and dizzy when standing. Patient denies any recent travel outside the country. No unusual diet or drink [facility]. Initial workup in the emergency department shows a CBC that is fairly unremarkable. Chemistry is remarkable for sodium of 124, chloride of 89, glucose of 131, and serum osmolality of 258. Her troponin is negative 1. CRP is less than 0.2. Her UA is not suggestive of UTI. Her CT scan report reads multiple cc within both right and left lobes of the liver which appear fairly stable from previous exam. Pancreas is atrophied. Aorta shows atherosclerotic change which continues into the iliac vessel. Slight bowel wall thickening seen within the right colon to be due to under distention. No additional bowel abnormality is appreciated. Compression deformity of T12 which is stable. Scattered degenerative changes seen which appears stable. Patient is being admitted for intractable nausea and vomiting. She is CPR only. Abdominal Pain Score (Numeric/FACES): 10 - Related Data Allergies/Adverse Reactions: Allergies Allergy/AdvReac Type Severity Reaction Status Date / Time No Known Allergies Allergy Verified 12/20/16 14:28 Home Medications: Home Meds Acetaminophen [Tylenol Extra Strength] 650 mg PO BID 03/09/15 [History] Aspirin 81 mg PO ACLUNCH 03/09/15 [History] LORazepam 0.5 mg PO BEDTIME 03/09/15 [History] Levothyroxine 125 mcg PO DAILY 03/09/15 [History] Losartan [Cozaar] 50 mg PO DAILY 03/09/15 [History] Pantoprazole [ProTONIX] 40 mg PO DAILY 03/09/15 [History] Calcium Polycarbophil [Fiber Tabs] 1,250 mg PO DAILY 11/19/15 [History] Ondansetron [Zofran] 4 mg PO ASDIRECTED PRN 11/19/15 [History] Sertraline [Zoloft] 75 mg PO DAILY 11/19/15 [History] Sucralfate [Carafate] 1 gm PO TID 11/19/15 [History] traMADol [Ultram] 100 mg PO BID 11/19/15 [History] Propranolol [Inderal] 10 mg PO DAILY 07/18/16 [History] Simvastatin [Zocor] 20 mg PO BEDTIME #30 tablet 07/22/16 [Rx] Calcium Carbonate/Vitamin D3 [Calcium 250+D] 1 tab PO DAILY 12/20/16 [History] Cyanocobalamin (Vitamin B12) [Vitamin B12] 1 tab PO DAILY 12/20/16 [History] Denosumab [Prolia] 60 mg SQ ASDIRECTED 12/20/16 [History] Diclofenac Sodium [Voltaren 1% Gel] 1 dose TOP DAILY 12/20/16 [History] Hydrochlorothiazide 12.5 mg PO DAILY 12/20/16 [History] Vit A/Vit C/Vit E/Zinc/Copper [Preservision] 1 tab PO BID 12/20/16 [History] Past Medical History HEENT History: Reports: Hard of Hearing, Other (See Below) Other HEENT History: daughter states she will bring the hearing aids in in the morning. pt wears glasses and has dentures. 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 The other knee is [id number]. Bilateral hip pain from osteoarthritis changes as well.) Social & Family History - Family History Family Medical History: Noncontributory - Tobacco Use Smoking Status *Q: Never Smoker Second Hand Smoke Exposure: No - Caffeine Use Caffeine Use: Reports: Other Other Caffeine Use: occassional coffee - Recreational Drug Use Recreational Drug Use: No - Living Situation & Occupation Living situation: Reports: Extended Care Facility (Currently residing at [facility] which is an assisted living program) Occupation: Retired H&P Review of Systems - Review of Systems: Review Of Systems: See Below General: Reports: Chills, Malaise, Weakness, Fatigue, Decreased Appetite HEENT: Reports: No Symptoms Pulmonary: Reports: Shortness of Breath Cardiovascular: Denies: Chest Pain Gastrointestinal: Reports: Abdominal Pain, Decreased Appetite, Flatus, Nausea, Vomiting. Denies: Constipation, Diarrhea, Difficulty Swallowing, Hematemesis Genitourinary: Reports: Frequency, Incontinence Musculoskeletal: Reports: Back Pain, Joint Pain, Other (Knees and Hips) Skin: Reports: No Symptoms Psychiatric: Denies: Confusion, Depression, Anxiety, Hallucinations Neurological: Reports: Dizziness, Weakness, Gait Disturbance. Denies: Confusion Hematologic/Lymphatic: Reports: No Symptoms Immunologic: Reports: No Symptoms Exam - Exam Exam: See Below - Vital Signs Vital Signs: Last Vital Signs Temp 36.3 C 12/20/16 14:16 Pulse 74 12/20/16 14:16 Resp 16 12/20/16 14:16 BP 163/93 H 12/20/16 14:16 Pulse Ox 100 12/20/16 14:16 Weight: 64.41 kg - Exam General: Alert, Cooperative, Mild Distress HEENT: Conjunctiva Clear, EACs Clear, EOMI, Hearing Intact, Mucosa Moist & [place] , Nares Patent, Normal Nasal Septum, Posterior Pharynx Clear, Pupils Equal, Pupils Reactive Neck: Supple, Trachea Midline, +2 Carotid Pulse wo Bruit Lungs: Clear to Auscultation, Normal Respiratory Effort Cardiovascular: Regular Rate, Regular Rhythm GI/Abdominal Exam: Soft, No Organomegaly, No Distention, No Abnormal Bruit, No Mass, Tender (epigastric region), Abnormal Bowel Sounds (Female) Exam: Deferred Rectal (Female) Exam: Deferred Back Exam: Normal Inspection, Decreased Range of Motion Extremities: Normal Inspection, Normal Range of Motion, Non-Tender, No Pedal Edema, Normal Capillary Refill Peripheral Pulses: 2+: Posterior Tibial (L), Posterior Tibial (R), Dorsalis Pedis (L), Dorsalis Pedis (R) Skin: Warm, Dry, Intact Neuro Extensive - Mental Status: Normal Mood/Affect, Normal Cognition, Memory Intact Neuro Extensive - Motor, Sensory, Reflexes: CN II-XII Intact, Normal Gait Psychiatric: Alert, Normal Affect, Normal Mood - Patient Data Result Diagrams: 12/20/16 14:23 12/20/16 14:23 EKG INTERPRETATION EKG Date: 12/20/16 Time: 14:40 Rhythm: NSR Rate (Beats/Min): 75 [place]: RAD-Right [place] Deviation P-Wave: Present ST-T: Other (PVCs) QT: Prolonged (Mildly) *Q Meaningful Use (ADM) - VTE *Q VTE Criteria *Q: - Stroke *Q Stroke Criteria *Q: - AMI *Q AMI Criteria *Q: Problem List Initiated/Reviewed/Updated: Yes Orders Last 24hrs: Medication Orders Dextrose/Sodium Chloride (Dextrose 5%-Normal Saline) 1,000 mls @ 150 mls/hr IV ASDIRECTED [facility] Last Admin: 12/20/16 14:38 Dose: 150 mls/hr Assessment/Plan Comment:: Assessment/Plan: Acute: Intractable Nausea and Vomiting - Risk factor: Hx/o PUD S/p Gastric Resection - [place] to tolerate solid food for 2 days - Bowel rest - IV Hydration - PRN anti-emesis Hyponatremia - Na 124 - She is on HCTZ and Zoloft - Will hold HCTZ - Start salt tablet 1 tab po TID Generalized Weakness With Dizziness - Has baseline Vertigo + Inadequate Nutritional Intake - Hopefully she gets better once she starts getting solid food in Chronic: Impaired Hearing HTN Constipation Urinary Incontinence Hypothyroidism OA Osteoporosis Hx/o Vertebral Fx Hx/o TRA still wears brace to help with pain Headaches Vertigo Memory Impairment Plan: Admit to Med-Surg Routine AM Labs NPO except ice chips, sips of water and some oral home meds PT/OT consult Fall Precautions SW/CM for d/c planning Additional orders as above Code status: CPR
[2016-12-20] MEDS ORDERED: LORazepam 2 MG/ML MDV IV PRN (18:51)
[2016-12-20] MEDS ORDERED: Ondansetron 4 MG/2 ML SDV IV PRN (18:51)
[2016-12-20] MEDS ORDERED: Acetaminophen/HYDROcodone 325-5 MG Tab PO PRN (18:51)
[2016-12-20] MEDS ORDERED: Promethazine 12.5 MG in Sodium Chloride 0.9% 50 ML IV PRN (18:51)
[2016-12-20] MEDS ORDERED: Temazepam 7.5 MG Cap PO PRN (18:51)
[2016-12-20] MEDS ORDERED: Albuterol/Ipratropium 3.0-0.5 MG/3 ML Neb Soln NEB PRN (18:51)
[2016-12-20] MEDS ORDERED: Acetaminophen 325 MG Tab PO PRN (18:51)
[2016-12-20] MEDS ORDERED: HYDROmorphone 1 MG/ML Syringe IVPUSH PRN (18:51)
[2016-12-20] MEDS ORDERED: Sucralfate 1 GM Tab PO PRN (18:55)
[2016-12-20] MEDS ORDERED: Diclofenac Sodium 1% Gel 100 GM Tube TOP SCH (21:00)
[2016-12-21] MEDS: Dextrose 5%-0.9% NaCl 1,000 ML IV SCH (05:07)
[2016-12-21] MEDS ORDERED: HYDROmorphone 0.5 MG/0.5 ML Syringe IVPUSH PRN (09:47)
[2016-12-21] MEDS: ASPIRIN 81 MG PO SCH (10:28)
[2016-12-21] MEDS: Sertraline 50 MG Tab PO SCH ×2 (10:29→19:06)
[2016-12-21] MEDS: LORazepam 0.5 MG Tab**PTOM PO SCH ×2 (11:49→20:15)
[2016-12-21] MEDS: Losartan 25 MG Tab**PT OWN PO SCH ×2 (11:49→20:15)
[2016-12-21] MEDS ORDERED: LEVOTHYROXINE 125 MCG PO SCH (12:00)
--- NOTE | 2016-12-21 17:05 | PCM.PN ---
- General Info Date of Service: 12/21/16 Admission Dx/Problem (Free Text): Admission Diagnosis/Problem Admission Diagnosis/Problem Hyponatremia Subjective Update: Follow Up Functional Status: Reports: Urinating. Denies: New Symptoms - Review of Systems General: Denies: Fever, Weakness, Fatigue, Malaise, Chills HEENT: Reports: No Symptoms Pulmonary: Denies: Shortness of Breath Cardiovascular: Denies: Chest Pain Gastrointestinal: Denies: Abdominal Pain, Nausea, Vomiting Genitourinary: Reports: No Symptoms Musculoskeletal: Reports: No Symptoms Skin: Denies: Cyanosis, Rash Neurological: Denies: Confusion, Difficulty Walking, Weakness, Gait Disturbance Psychiatric: Reports: Confusion (Baseline Dementia). Denies: Depression, Anxiety, Agitation, Hallucinations - Patient Data Vitals - Most Recent: Last Vital Signs Temp 37.2 C 12/21/16 12:25 Pulse 72 12/21/16 12:25 Resp 20 12/21/16 12:24 BP 136/83 12/21/16 12:24 Pulse Ox 94 L 12/21/16 12:25 Weight - Most Recent: 65.181 kg I&O - Last 24 Hours: Intake & Output 12/21/16 12/21/16 12/21/16 06:59 14:59 22:59 Intake Total 1524 480 780 Output Total 300 Balance 1524 480 480 Lab Results Last 24 Hours: Laboratory Results - last 24 hr 12/20/16 12/21/16 12/21/16 Range/Units 23:52 06:30 06:30 WBC 4.98 (3.98-10.04) K/mm3 RBC 4.28 (3.98-5.22) M/mm3 Hgb 13.7 (11.2-15.7) gm/L Hct 39.1 (34.1-44.9) % MCV 91.4 (79.4-94.8) fl MCH 32.0 (25.6-32.2) pg MCHC 35.0 (32.2-35.5) g/dl RDW Std Deviation 38.6 (36.4-46.3) fL Plt Count 289 (182-369) K/mm3 MPV 8.7 L (9.4-12.3) fl Neut % (Auto) 61.4 (34.0-71.1) % Lymph % (Auto) 24.5 (19.3-51.7) % Bertie % (Auto) 13.1 H (4.7-12.5) % Eos % (Auto) 0.6 L (0.7-5.8) Baso % (Auto) 0.2 (0.1-1.2) % Neut # (Auto) 3.06 (1.56-6.13) K/mm3 Lymph # (Auto) 1.22 (1.18-3.74) K/mm3 Bertie # (Auto) 0.65 H (0.24-0.36) K/mm3 Eos # (Auto) 0.03 L (0.04-0.36) K/mm3 Baso # (Auto) 0.01 (0.01-0.08) K/mm3 Sodium 133 L (136-145) mEq/L Potassium 3.5 (3.5-5.1) mEq/L Chloride 98 (98-107) mEq/L Carbon Dioxide 27 (21-32) mEq/L Anion Gap 11.5 (5-15) BUN 4 L (7-18) mg/dL Creatinine 0.7 (0.55-1.02) mg/dL Est Cr Clr Drug Dosing 45.95 mL/min Estimated GFR (MDRD) > 60 (>60) mL/min BUN/Creatinine Ratio 5.7 L (14-18) Glucose 141 H (83-115) mg/dL Calcium 7.9 L (8.5-10.1) mg/dL Magnesium 2.0 (1.8-2.4) mg/dl MRSA (PCR) Negative Med Orders - Current: Current Medications Acetaminophen (Tylenol) 650 mg PO Q4H PRN PRN Reason: Pain (Mild 1-3)/fever Hydrocodone Bitart/Acetaminophen ([place] 325-5 Mg) 1 tab PO Q4H PRN PRN Reason: Pain (moderate 4-6) Albuterol/Ipratropium (Duoneb 3.0-0.5 Mg/3 Ml) 3 ml NEB Q4H PRN PRN Reason: Shortness Of Breath/wheezing Aspirin (Aspirin) 81 mg PO ACLUNCH [facility] Last Admin: 12/21/16 10:28 Dose: 81 mg Hydromorphone HCl (Dilaudid) 0.25 mg IVPUSH Q4H PRN PRN Reason: Pain (severe 7-10) Promethazine HCl 12.5 mg/ (Sodium Chloride) 50.5 mls @ 100 mls/hr IV Q6H PRN PRN Reason: Nausea/Vomiting Levothyroxine Sodium (Levothyroxine) 125 mcg PO 1200 [facility] Last Admin: 12/21/16 12:48 Dose: 125 mcg Lorazepam (Ativan) 0.25 mg IV Q6H PRN PRN Reason: Anxiety Lorazepam (Ativan) 0.5 mg PO BEDTIME [facility] Last Admin: 12/21/16 11:49 Dose: Not Given Losartan Potassium (Cozaar) 50 mg PO BEDTIME [facility] Last Admin: 12/21/16 11:49 Dose: Not Given Ondansetron HCl (Zofran) 4 mg IV Q6H PRN PRN Reason: Nausea/Vomiting Sertraline HCl (Zoloft) 0 mg PO ACDINNER [facility] Last Admin: 12/21/16 10:29 Dose: 75 mg Sucralfate (Carafate) 1 gm PO TID PRN PRN Reason: stomach pain Temazepam (Restoril) 7.5 mg PO BEDTIME PRN PRN Reason: Sleep Discontinued Medications Diatrizoate Meglum/Diatrizoate Sod (Gastrografin 37%) 45 ml PO ONETIME ONE Stop: 12/20/16 16:11 Last Admin: 12/20/16 16:22 Dose: 45 ml Diclofenac Sodium (Voltaren 1% Gel) gm TOP BEDTIME [facility] Hydromorphone HCl (Dilaudid) 0.25 mg IVPUSH ONETIME ONE Stop: 12/20/16 14:38 Last Admin: 12/20/16 14:59 Dose: Not Given Hydromorphone HCl (Dilaudid) 0.25 mg IVPUSH Q4H PRN PRN Reason: Pain (severe 7-10) Dextrose/Sodium Chloride (Dextrose 5%-Normal Saline) 1,000 mls @ 150 mls/hr IV ASDIRECTED [facility] Last Admin: 12/21/16 05:07 Dose: 150 mls/hr Metoclopramide HCl (Reglan) 5 mg IVPUSH ONETIME ONE Stop: 12/20/16 17:19 Last Admin: 12/20/16 17:24 Dose: 5 mg Ondansetron HCl (Zofran) 4 mg IVPUSH ONETIME ONE Stop: 12/20/16 14:38 Last Admin: 12/20/16 14:46 Dose: 4 mg - Exam General: Alert, Oriented, Cooperative, No Acute Distress, Mild Distress HEENT: Pupils Equal, Pupils Reactive, EOMI, Mucous Membr. Moist/[place] Neck: Supple, Trachea Midline, No JVD, No Thyromegaly Lungs: Clear to Auscultation, Normal Respiratory Effort, Decreased Breath Sounds Cardiovascular: Regular Rate, Regular Rhythm GI/Abdominal Exam: Normal Bowel Sounds, Soft, Non-Tender, No Organomegaly, No Distention, No Abnormal Bruit, No Mass (Female) Exam: Deferred Back Exam: Normal Inspection, Decreased Range of Motion Extremities: Normal Inspection, Normal Range of Motion, Non-Tender, No Pedal Edema, Normal Capillary Refill Peripheral Pulses: 2+: Dorsalis Pedis (L), Dorsalis Pedis (R) Skin: Warm, Dry, Intact Neurological: No New Focal Deficit Psy/Mental Status: Alert, Normal Affect, Normal Mood - Problem List Review Problem List Initiated/Reviewed/Updated: Yes - My Orders Last 24 Hours: My Active Orders 12/20/16 18:51 Height and Weight [RC] 04 Oxygen Therapy [RC] PRN Up With Assistance [RC] ASDIRECTED Up ad Angy [RC] ASDIRECTED VTE/DVT Education [RC] DAILY Vital Signs [RC] Q4HR Acetaminophen [Tylenol] 650 mg PO Q4H PRN Acetaminophen/HYDROcodone [[place] 325-5 MG] 1 tab PO Q4H PRN Albuterol/Ipratropium [DuoNeb 3.0-0.5 MG/3 ML] 3 ml NEB Q4H PRN LORazepam [Ativan] 0.25 mg IV Q6H PRN Ondansetron [Zofran] 4 mg IV Q6H PRN Promethazine [Phenergan] 12.5 mg Sodium Chloride 0.9% [Normal Saline] 50 ml IV Q6H Temazepam [Restoril] 7.5 mg PO BEDTIME PRN Resuscitation Status Routine 12/20/16 18:52 Intake and Output [RC] 04,16 Sequential Compression Device [OM.PC] Per Unit Routine 12/20/16 18:53 Antiembolic Devices [RC] 1000,2200 12/20/16 18:54 RT Aerosol Therapy [RC] ASDIRECTED Consult to Case Management [CONS] Routine Consult to Roller Operator [CONS] Routine Consult to Spiritual Care [CONS] Routine OT Evaluation and Treatment [CONS] Routine PT Evaluation and Treatment [CONS] Routine 12/20/16 18:55 Sucralfate [Carafate] 1 gm PO TID PRN 12/20/16 21:00 LORazepam [Ativan] 0.5 mg PO BEDTIME Losartan [Cozaar] 50 mg PO BEDTIME 12/21/16 09:47 HYDROmorphone [Dilaudid] 0.25 mg IVPUSH Q4H PRN 12/21/16 10:00 Aspirin 81 mg PO ACLUNCH Sertraline [Zoloft] 0 mg PO ACDINNER 12/21/16 12:00 Levothyroxine 125 mcg PO 1200 12/21/16 Dinner Full Liquid Diet [DIET] 12/22/16 05:11 BASIC METABOLIC PANEL,BMP [CHEM] AM MAGNESIUM [CHEM] AM 12/23/16 05:11 BASIC METABOLIC PANEL,BMP [CHEM] AM MAGNESIUM [CHEM] AM 12/24/16 05:11 BASIC METABOLIC PANEL,BMP [CHEM] AM MAGNESIUM [CHEM] AM - Plan Plan:: Assessment/Plan: Acute: Hyponatremia - Na 124---> 133 - She is on HCTZ and Zoloft - Continue to hold HCTZ and salt tablet 1 tab po TID - D/c salt tablets in am Generalized Weakness With Dizziness - Has baseline Vertigo + Inadequate Nutritional Intake - Hopefully she gets better once she starts getting solid food in Resolved: S/p Intractable Nausea and Vomiting - Risk factor: Hx/o PUD S/p Gastric Resection - Unable to tolerate solid food for 2 days - Bowel rest - IV Hydration - PRN anti-emesis Chronic: Impaired Hearing HTN Constipation Urinary Incontinence Hypothyroidism OA Osteoporosis Hx/o Vertebral Fx Hx/o TRA still wears brace to help with pain Headaches Vertigo Memory Impairment Plan: She is looks clinically much better Routine AM Labs Clear liquids and advance diet as tolerated Continue PT/OT Fall Precautions SW/CM for d/c planning Additional orders as above Code status: CPR Possible d/c in am
--- NOTE | 2016-12-21 17:29 | CR ---
Abdomen: Supine view of the abdomen was obtained. Comparison: Previous abdominal x-ray of 03/11/15. Scattered gas within small bowel is seen within the left abdomen believed to be incidental. Small amount of colonic gas noted within the rectosigmoid region and right colon also felt to be incidental. Sclerotic area is noted within the right greater trochanter which appears stable from old study and felt to be incidental. Mild degenerative change is noted within the spine. Impression: 1. Incidental findings as noted above. Diagnostic code #2
--- NOTE | 2016-12-21 17:29 | CR ---
Chest: Portable view of the chest was obtained. Comparison: Previous chest x-ray of 07/10/16. Heart size appears within normal limits. Tortuous thoracic aorta is seen. Slight scarring or atelectasis is incidentally noted within the right lung base. Central lung markings are mildly increased which appear chronic. No acute pulmonary densities are seen. Minimal degenerative spurring is noted within the spine. Impression: 1. Incidental findings. Nothing acute is appreciated on portable chest x-ray. Diagnostic code #2
[2016-12-22 08:40] VITALS: BP 144/64
--- NOTE | 2016-12-22 08:58 | PCM.DCSUM1 ---
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 She has not been able to tolerate any solid food. Patient describes her vomitus as bilious in nature. Her triple complaining is associated we the abdominal pain primarily in the epigastric region. She denies any other associated GI symptoms. Patient carries a history of peptic ulcers disease in which 80% of her stomach was resected. Patient is able to keep water down to stay hydrated. She denies any signs of systemic infection. However she admits to feeling weak and dizzy when standing. Patient denies any recent travel outside the country. No unusual diet or drink [facility]. Initial workup in the emergency department shows a CBC that is fairly unremarkable. Chemistry is remarkable for sodium of 124, chloride of 89, glucose of 131, and serum osmolality of 258. Her troponin is negative 1. CRP is less than 0.2. Her UA is not suggestive of UTI. Her CT scan report reads multiple cc within both right and left lobes of the liver which appear fairly stable from previous exam. Pancreas is atrophied. Aorta shows atherosclerotic change which continues into the iliac vessel. Slight bowel wall thickening seen within the right colon to be due to under distention. No additional bowel abnormality is appreciated. Compression deformity of T12 which is stable. Scattered degenerative changes seen which appears stable. Patient is being admitted for intractable nausea and vomiting. She is CPR only. She was admitted to [facility], hydrated with IVF, given IV protonix, antiemetics, clear liquids. Vomiting resolved. Nausea slowly improved. Diet was advanced as nausea improved. Labs remained stable. VSS. Stool studies were negative for infectious causes. She worked with PT/OT for strengthening. She was tolerating food but had minimal appetite. She was discharged home with family care with follow up with Dr. Lamar within 5-7 days for recheck. - Discharge Data Discharge Date: 12/22/16 Discharge Disposition: Home, Self-Care 01 Condition: Good - Discharge Diagnosis/Problem(s) (1) Hyponatremia with decreased serum osmolality SNOMED Code(s): 034661247 ICD Code: E87.1 - HYPO-OSMOLALITY AND HYPONATREMIA Status: Acute Priority : High (2) Intractable nausea and vomiting SNOMED Code(s): 396543559, 205334396 ICD Code: R11.2 - NAUSEA WITH VOMITING, UNSPECIFIED Status: Resolved Priority: High Qualifiers: Vomiting type: unspecified Qualified Code(s): R11.2 - Nausea with vomiting , unspecified - Patient Summary/Data Operative Procedure(s) Performed: None Complications: None Consults: Consultations 12/20/16 18:54 Consult to Case Management [CONS] Routine Consult to Trolley Collector [CONS] Routine Consult to Spiritual Care [CONS] Routine OT Evaluation and Treatment [CONS] Routine PT Evaluation and Treatment [CONS] Routine Labs Pending at D/C: None Recommended Follow-up Testing/Procedures: Follow up with Dr. Lamar within 5 days of discharge with labs prior; CBC and BMP, magnesium Take salt tablets (Thermotabs) once daily for 5 days, or until you are able to see Dr. Lamar in follow up. Potassium rich foods. Push fluids Planned Operative Procedure(s) after DC: None Hospital Course: As above - Patient Instructions Diet: Usual Diet as Tolerated (advance slowly) Activity: As Tolerated Showering/Bathing: May Shower Notify Provider of: Fever, Increased Pain, Nausea and/or Vomiting - Discharge Plan Prescriptions/Med Rec: Potassium Chloride/NaCl [Thermotabs] 1 each PO DAILY #5 tablet Home Medications: Home Meds Aspirin 81 mg PO ACLUNCH 03/09/15 [History] LORazepam 0.5 mg PO BEDTIME 03/09/15 [History] Levothyroxine 125 mcg PO 12 03/09/15 [History] Losartan [Cozaar] 50 mg PO BEDTIME 03/09/15 [History] Pantoprazole [ProTONIX] 40 mg PO DAILY 03/09/15 [History] Sertraline [Zoloft] 75 mg PO ACDINNER 11/19/15 [History] Sucralfate [Carafate] 1 gm PO TID PRN 11/19/15 [History] traMADol [Ultram] 50 mg PO QAM 11/19/15 [History] Simvastatin [Zocor] 20 mg PO BEDTIME #30 tablet 07/22/16 [Rx] C-Ketoprofen/International Account Representative 10%/2% In Lipoderm 1 pump TOP TID 12/20/16 [History] Ca/D3/Mag Ox/Zinc/Diabetes Manager/Mauricio/Bor [Calcium 600-D3 Plus Caplet] 1 tab PO ACDINNER [History] Denosumab [Prolia] 60 mg SQ ASDIRECTED 12/20/16 [History] Ibuprofen [Motrin] 200 mg PO QAM 12/20/16 [History] Ibuprofen [Motrin] 400 mg PO BEDTIME 12/20/16 [History] Imipramine HCl [Tofranil] 25 mg PO ACDINNER 12/20/16 [History] Ondansetron [Zofran ODT] 4 mg PO ASDIRECTED PRN 12/20/16 [History] Psyllium Husk [Daily Fiber] 1 tab PO ACLUNCH 12/20/16 [History] Vit A/Vit C/Vit E/Zinc/Copper [Preservision] 1 tab PO 12,18 12/20/16 [History] Vitamin B Complex 1 cap PO ACDINNER 12/20/16 [History] traMADol [Ultram] 100 mg PO BEDTIME 12/20/16 [History] Potassium Chloride/NaCl [Thermotabs] 1 each PO DAILY #5 tablet 12/22/16 [Rx] Patient Handouts: Hyponatremia, Hypokalemia, Dehydration, Adult, [id number], Rehydration, Elderly Forms: ED Department Discharge Referrals: Jose Anderson MD [Primary Care Provider] - - Discharge Summary/Plan Comment DC Time >30 min.: Yes (40 min) - General Info Date of Service: 12/22/16 Functional Status: Reports: Pain Controlled, Tolerating Diet, Ambulating, Urinating. Denies: New Symptoms - Review of Systems General: Reports: No Symptoms HEENT: Reports: No Symptoms Pulmonary: Reports: No Symptoms Cardiovascular: Reports: No Symptoms Gastrointestinal: Reports: No Symptoms, Decreased Appetite (chronic). Denies: Abdominal Pain, Constipation, Diarrhea, Nausea, Vomiting Genitourinary: Reports: No Symptoms Musculoskeletal: Reports: No Symptoms Skin: Reports: No Symptoms Neurological: Reports: No Symptoms Psychiatric: Reports: No Symptoms - Patient Data Vitals - Most Recent: Last Vital Signs Temp 98.8 F 12/22/16 08:29 Pulse 85 12/22/16 08:29 Resp 14 12/22/16 08:29 BP 144/64 H 12/22/16 08:29 Pulse Ox 96 12/22/16 08:29 Weight - Most Recent: 144 lb 1.6 oz I&O - Last 24 hours: Intake & Output 12/21/16 12/22/16 12/22/16 22:59 06:59 14:59 Intake Total 1580 900 Output Total 300 1050 Balance 1280 -150 Lab Results - Last 24 hrs: Laboratory Results - last 24 hr 12/22/16 Range/Units 05:40 Sodium 131 L (136-145) mEq/L Potassium 3.1 L (3.5-5.1) mEq/L Chloride 96 L (98-107) mEq/L Carbon Dioxide 25 (21-32) mEq/L Anion Gap 13.1 (5-15) BUN 4 L (7-18) mg/dL Creatinine 0.6 (0.55-1.02) mg/dL Est Cr Clr Drug Dosing 53.61 mL/min Estimated GFR (MDRD) > 60 (>60) mL/min BUN/Creatinine Ratio 6.7 L (14-18) Glucose 105 (83-115) mg/dL Calcium 8.2 L (8.5-10.1) mg/dL Magnesium 1.9 (1.8-2.4) mg/dl Med Orders - Current: Current Medications Acetaminophen (Tylenol) 650 mg PO Q4H PRN PRN Reason: Pain (Mild 1-3)/fever Hydrocodone Bitart/Acetaminophen ([place] 325-5 Mg) 1 tab PO Q4H PRN PRN Reason: Pain (moderate 4-6) Albuterol/Ipratropium (Duoneb 3.0-0.5 Mg/3 Ml) 3 ml NEB Q4H PRN PRN Reason: Shortness Of Breath/wheezing Aspirin (Aspirin) 81 mg PO ACLUNCH [facility] Last Admin: 12/21/16 10:28 Dose: 81 mg Hydromorphone HCl (Dilaudid) 0.25 mg IVPUSH Q4H PRN PRN Reason: Pain (severe 7-10) Promethazine HCl 12.5 mg/ (Sodium Chloride) 50.5 mls @ 100 mls/hr IV Q6H PRN PRN Reason: Nausea/Vomiting Levothyroxine Sodium (Levothyroxine) 125 mcg PO 1200 [facility] Last Admin: 12/21/16 12:48 Dose: 125 mcg Lorazepam (Ativan) 0.25 mg IV Q6H PRN PRN Reason: Anxiety Lorazepam (Ativan) 0.5 mg PO BEDTIME [facility] Last Admin: 12/21/16 20:15 Dose: 0.5 mg Losartan Potassium (Cozaar) 50 mg PO BEDTIME [facility] Last Admin: 12/21/16 20:15 Dose: 50 mg Ondansetron HCl (Zofran) 4 mg IV Q6H PRN PRN Reason: Nausea/Vomiting Sertraline HCl (Zoloft) 0 mg PO ACDINNER [facility] Last Admin: 12/21/16 19:06 Dose: Not Given Sucralfate (Carafate) 1 gm PO TID PRN PRN Reason: stomach pain Temazepam (Restoril) 7.5 mg PO BEDTIME PRN PRN Reason: Sleep Discontinued Medications Diatrizoate Meglum/Diatrizoate Sod (Gastrografin 37%) 45 ml PO ONETIME ONE Stop: 12/20/16 16:11 Last Admin: 12/20/16 16:22 Dose: 45 ml Diclofenac Sodium (Voltaren 1% Gel) gm TOP BEDTIME [facility] Hydromorphone HCl (Dilaudid) 0.25 mg IVPUSH ONETIME ONE Stop: 12/20/16 14:38 Last Admin: 12/20/16 14:59 Dose: Not Given Hydromorphone HCl (Dilaudid) 0.25 mg IVPUSH Q4H PRN PRN Reason: Pain (severe 7-10) Dextrose/Sodium Chloride (Dextrose 5%-Normal Saline) 1,000 mls @ 150 mls/hr IV ASDIRECTED [facility] Last Admin: 12/21/16 05:07 Dose: 150 mls/hr Metoclopramide HCl (Reglan) 5 mg IVPUSH ONETIME ONE Stop: 12/20/16 17:19 Last Admin: 12/20/16 17:24 Dose: 5 mg Ondansetron HCl (Zofran) 4 mg IVPUSH ONETIME ONE Stop: 12/20/16 14:38 Last Admin: 12/20/16 14:46 Dose: 4 mg - Exam Quality Assessment: Reports: DVT Prophylaxis General: Reports: Alert, Oriented, Cooperative, No Acute Distress HEENT: Reports: Pupils Equal, EOMI, Mucous Membr. Moist/Colp Neck: Reports: Supple Lungs: Reports: Clear to Auscultation, Normal Respiratory Effort, Decreased Breath Sounds (bases) Cardiovascular: Reports: Regular Rate, Regular Rhythm GI/Abdominal Exam: Normal Bowel Sounds, Soft, Non-Tender, No Organomegaly (Female) Exam: Deferred Rectal (Female) Exam: Deferred Extremities: Normal Inspection, No Pedal Edema Skin: Reports: Warm, Dry, Intact Neurological: Reports: No New Focal Deficit Psy/Mental Status: Reports: Alert, Normal Affect, Normal Mood *Q Meaningful Use (DIS) - VTE *Q VTE Criteria *Q: - Stroke *Q Stroke Criteria *Q: - AMI *Q AMI Criteria *Q:
[2016-12-22] MEDS: ASPIRIN 81 MG PO SCH (09:22)
[2016-12-22] MEDS ORDERED: Potassium Chloride 20 MEQ Tab.ER PO ONE (09:49)
[2016-12-22] MEDS ORDERED: Potassium Chloride/Sodium Chloride Tab PO SCH (10:00)
== END 2016-12-22 11:41 | disposition home or self-care (01) ==
LOC: JD.ED 14:12 → JD.MS 16:53 → UNDOADMIN 16:58
PROVIDERS: ADMIT Internal Medicine; ATTEND Internal Medicine
DX: E87.1 Hypo-osmolality and hyponatremia (principal); R11.2 Nausea with vomiting, unspecified; I10 Essential (primary) hypertension; K59.00 Constipation, unspecified; E03.9 Hypothyroidism, unspecified; M19.90 Unspecified osteoarthritis, unspecified site; M81.0 Age-related osteoporosis without current pathological fracture; Z79.82 Long term (current) use of aspirin; Z79.899 Other long term (current) drug therapy; Z96.651 Presence of right artificial knee joint; Z98.890 Other specified postprocedural states; R06.02 Shortness of breath
CPT/HCPCS: 36415; 71010; 74000; 74176; 80048; 80053; 81001; 83690; 83735; 83880; 83930; 84484; 85025; 86140; 87641; 93005; 96361; 96374; 96375; 97161; 97165; 99285; A9270; G0378; J2405; J2765; J7042; Q9963; 93010